=== PATIENT | female | born 1960 | race Caucasian/White ===

== ENCOUNTER 2017-02-11 21:23 | Emergency (ER) | payer BC ==
[2017-02-11] MEDS ORDERED: Albuterol/Ipratropium NEB.SOL* Albuterol 2.5 MG/Ipratropium 0.5 MG 3 ML INH ONE (21:55)
[2017-02-11] MEDS ORDERED: DOXYcycline CAP(*) 100 MG PO ONE (21:56)
--- NOTE | 2017-02-11 22:05 | UC ---
Respiratory Complaint HPI - HPI Summary HPI Summary: Pt with hx COPD states she has increased SOB and feels her chest is tight. Cough. States she can't take prednisone "because it made her sugar go up to 800 ". Has cirrhosis of the liver and varices. Has a home nebulizer but doesn't use it "because it is antiquated". - History of Current Complaint Chief Complaint: UCRespiratory Stated Complaint: UPPER RESPIRATORY Hx Obtained From: Patient Hx Last Menstrual Period: No menses since Radiation s/p uterine CA Onset/Duration: Gradual Onset, Lasting Days, Still Present Timing: Constant Severity Initially: Moderate Severity Currently: Moderate Pain Intensity: 7 Pain Scale Used: 0-10 Numeric Character: Cough: Nonproductive Aggravating Factors: Nothing Alleviating Factors: Nothing Associated Signs And Symptoms: Positive: Wheezing, URI, Nasal Congestion. Negative: Fever, Calf Pain, Calf Swelling - Risk Factors Pulmonary Embolism Risk Factors: Smoking Cardiac Risk Factors: Smoking Pseudomonas Risk Factors: Chronic Lung Disease Tuberculosis Risk Factors: Smoking - Allergies/Home Medications Allergies/Adverse Reactions: Allergies Allergy/AdvReac Type Severity Reaction Status Date / Time Azithromycin [From Zithromax] Allergy Severe THROAT Verified 02/11/17 21:28 SWELLS Clarithromycin [From Biaxin] Allergy Severe THROAT Verified 02/11/17 21:28 SWELLS Clavulanic Acid AdvReac Diarrhea Verified 02/11/17 21:28 [From Augmentin] ? amoxicillin as part of Allergy Diarrhea Uncoded 02/11/17 21:28 Augmentin Home Medications: Home Medications Propranolol TAB* [Inderal TAB*] 20 mg PO TID 02/11/17 [History Confirmed ] Spironolactone 50 mg PO DAILY 02/11/17 [History Confirmed 02/11/17] PMH/Surg Hx/FS Hx/Imm Hx Previously Healthy: No - cirrhosis of the liver , uterine CA Endocrine History Of: Reports: Diabetes - type II, Hypothyroidism Cardiovascular History Of: Reports: Hypertension Denies: Cardiac Disorders Respiratory History Of: Reports: COPD Denies: Asthma GI/ History Of: Denies: Ulcer - Surgical History Surgical History: Yes Surgery Procedure, Year, and Place: TUBAL LIGATION--1979. ??ESOPHEGIEAL VARICES - Family History Known Family History: Positive: Hypertension, Diabetes, Other - COPD daughter of cirrhosis and renal failure. - Social History Occupation: Employed Full-time Alcohol Use: None Substance Use Type: None Smoking Status (MU): Heavy Every Day Tobacco Smoker Type: Cigarettes Amount Used/How Often: 1/2 PPD Length of Time of Smoking/Using Tobacco: 20 YRS Have You Smoked in the Last Year: Yes Household Exposure Type: Cigarettes - Immunization History Most Recent Influenza Vaccination: Not the Season Review of Systems Constitutional: Fatigue Skin: Negative Eyes: Negative ENT: Nasal Discharge Respiratory: Shortness Of Breath, Cough Cardiovascular: Other - chest tightness Gastrointestinal: Negative Genitourinary: Negative Motor: Negative Neurovascular: Negative Musculoskeletal: Negative Neurological: Negative Psychological: Negative All Other Systems Reviewed And Are Negative: Yes Physical Exam Triage Information Reviewed: Yes Appearance: No Pain Distress, Ill-Appearing, Thin Vital Signs: Initial Vital Signs Temp 97.5 F 02/11/17 21:36 Pulse 74 02/11/17 21:36 Resp 24 02/11/17 21:36 BP 129/65 02/11/17 21:36 Pulse Ox 96 02/11/17 21:36 Vital Signs Reviewed: Yes Eyes: Positive: Conjunctiva Clear ENT: Positive: Pharynx normal, TMs normal Neck: Positive: Supple, Nontender, No Lymphadenopathy Respiratory: Positive: No respiratory distress, Decreased breath sounds, Wheezing Cardiovascular: Positive: RRR, No Murmur, Pulses Normal, Brisk Capillary Refill Musculoskeletal: Positive: Strength Intact, ROM Intact Neurological: Positive: Alert, Muscle Tone Normal Psychological Exam: Normal Skin Exam: Normal UC Diagnostic Evaluation - Laboratory O2 Sat by Pulse Oximetry: 96 Re-Evaluation - Re-Evaluation First Eval Re-Evaluation Time: 23:00 Change: Improved - after neb Respiratory Course/Dx - Differential Dx/Diagnosis Differential Diagnosis/HQI/PQRI: Bronchitis, Exacerbation Of COPD, Influenza, Lower Resp Infection Provider Diagnoses: exacerbation of COPD. acute bronchitis Discharge - Discharge Plan Condition: Stable Disposition: HOME Prescriptions: DOXYcycline CAP(*) [DOXYcycline 100MG CAP(*)] 100 mg PO BID #20 cap Patient Education Materials: COPD (Chronic Obstructive Pulmonary Disease) (ED) , Acute Bronchitis (ED) Forms: *Work Release Referrals: Davida Billy MD [Primary Care Provider] - 2 Days Additional Instructions: If you have new or worsening symptoms you need to go directly to the emergency department.
--- NOTE | 2017-02-11 22:26 | RAD ---
Indication: Shortness of breath and wheezing. 2 views of the chest including dual energy PA views demonstrate no mediastinal shift. Heart is of normal size and configuration. Lung greenwood are clear. When compared to previous exam of March 01, 2010 no significant change is noted. IMPRESSION: No active cardiopulmonary disease is noted.
[2017-02-11 22:55] VITALS: BP 102/68
== END 2017-02-11 23:11 | disposition home or self-care (01) ==
LOC: UCCORT 21:23
DX: J44.1 Chronic obstructive pulmonary disease with (acute) exacerbation (principal); J20.9 Acute bronchitis, unspecified; K74.60 Unspecified cirrhosis of liver; Z85.42 Personal history of malignant neoplasm of other parts of uterus; Z88.1 Allergy status to other antibiotic agents; F17.210 Nicotine dependence, cigarettes, uncomplicated
CPT/HCPCS: 71020; 99213; A9270-GY; G0463

== ENCOUNTER 2017-04-13 15:18 | Emergency (ER) | payer OTHER ==
[2017-04-13 15:33] VITALS: BP 110/64
--- NOTE | 2017-04-13 16:09 | UC ---
Respiratory Complaint HPI - HPI Summary HPI Summary: 2 days of increasing dypsnea, with use of albuterol every 3 to 4 hours, with a background of COPD. No clear symptoms of new infection: has not had a fever, sore throat, chills or coryza, but exacerbations of her COPD typically respond to doxycycline and increased albuterol. She responds well to steroids, but her diabetes control deteriorates badly with use (blood sugars to ? 800). Takes advair and spiriva regularly. Was at her gi doctor's office today; he advised her that she sounded like a harmonica. - History of Current Complaint Chief Complaint: UCGeneralIllness Stated Complaint: WHEEZING,SOB TWO DAYS Time Seen by Provider: 04/13/17 15:58 Hx Obtained From: Patient Hx Last Menstrual Period: No menses since Radiation s/p uterine CA Onset/Duration: Gradual Onset, Lasting Days - 2 Severity Currently: Moderate Character: Sputum Description: - white Aggravating Factors: Exertion Alleviating Factors: Bronchodilator Associated Signs And Symptoms: Positive: Dyspnea, Wheezing - Risk Factors Pulmonary Embolism Risk Factors: Smoking - smokes a little bit still Pseudomonas Risk Factors: Chronic Lung Disease Tuberculosis Risk Factors: Corticosteriod Use - Allergies/Home Medications Allergies/Adverse Reactions: Allergies Allergy/AdvReac Type Severity Reaction Status Date / Time Azithromycin [From Zithromax] Allergy Severe THROAT Verified 04/13/17 15:33 SWELLS Clarithromycin [From Biaxin] Allergy Severe THROAT Verified 04/13/17 15:33 SWELLS Clavulanic Acid AdvReac Diarrhea Verified 04/13/17 15:33 [From Augmentin] ? amoxicillin as part of Allergy Diarrhea Uncoded 04/13/17 15:33 Augmentin PMH/Surg Hx/FS Hx/Imm Hx Endocrine History Of: Reports: Diabetes - type II, Thyroid Disease, Hypothyroidism Cardiovascular History Of: Reports: Hypertension Denies: Cardiac Disorders Respiratory History Of: Reports: COPD, Bronchitis Denies: Asthma GI/ History Of: Denies: Ulcer - Surgical History Surgical History: Yes Surgery Procedure, Year, and Place: TUBAL LIGATION--1979. ??ESOPHEGIEAL VARICES /banding - Family History Known Family History: Positive: Hypertension, Diabetes, Other - COPD daughter of cirrhosis and renal failure. - Social History Occupation: Disabled Lives: With Family - 2 granddaughters Alcohol Use: None Substance Use Type: None Smoking Status (MU): Heavy Every Day Tobacco Smoker Type: Cigarettes Amount Used/How Often: 1/2 PPD Length of Time of Smoking/Using Tobacco: 20 YRS Have You Smoked in the Last Year: Yes Household Exposure Type: Cigarettes - Immunization History Most Recent Influenza Vaccination: none Review of Systems Constitutional: Fatigue Skin: Negative Eyes: Negative ENT: Negative Respiratory: Shortness Of Breath, Cough Cardiovascular: Negative Gastrointestinal: Other - pending further treatment of esophageal varices. Genitourinary: Negative Motor: Negative Neurovascular: Negative Musculoskeletal: Negative Neurological: Negative Psychological: Negative All Other Systems Reviewed And Are Negative: Yes Physical Exam Triage Information Reviewed: Yes Appearance: Ill-Appearing - looks chronically unwell Vital Signs: Initial Vital Signs Temp 98.9 F 04/13/17 15:26 Pulse 72 04/13/17 15:26 Resp 17 04/13/17 15:26 BP 110/64 04/13/17 15:26 Pulse Ox 96 04/13/17 15:26 Eyes: Positive: Conjunctiva Clear ENT: Positive: Pharynx normal Neck: Positive: Supple, Nontender Respiratory: Positive: No accessory muscle use, Decreased breath sounds - to both bases, with prolonged expiration and wheeze., Wheezing Cardiovascular: Positive: RRR, No Murmur Musculoskeletal Exam: Normal Neurological: Positive: Alert, Muscle Tone Normal Psychological Exam: Normal UC Diagnostic Evaluation - Laboratory O2 Sat by Pulse Oximetry: 96 Respiratory Course/Dx - Course Course Of Treatment: doxycycline and albuterol nebs - Differential Dx/Diagnosis Differential Diagnosis/HQI/PQRI: Asthma, Bronchitis, Exacerbation Of COPD Provider Diagnoses: COPD exacerbation Discharge - Discharge Plan Condition: Stable Disposition: HOME Prescriptions: Albuterol 2.5MG/3ML (0.083%)* [Ventolin 2.5 MG/3 ML NEB.BLANCA*] 2.5 mg INH Q4H # 120 [email or web address] DOXYcycline CAP(*) [DOXYcycline 100MG CAP(*)] 100 mg PO BID #20 cap Patient Education Materials: COPD (Chronic Obstructive Pulmonary Disease) (ED) Additional Instructions: begin doxycycline and use albuterol nebules every 4 hours as needed. If you are not seeing improvement in 2 to 3 days, ensure that you follow up with Dr. Menard. If you worsen, please go to the emergency room, as you might need a longer course of treatment than can be administered here.
== END 2017-04-13 16:26 | disposition home or self-care (01) ==
LOC: UCCORT 15:18
DX: J44.1 Chronic obstructive pulmonary disease with (acute) exacerbation (principal); E11.9 Type 2 diabetes mellitus without complications; E03.9 Hypothyroidism, unspecified; I10 Essential (primary) hypertension; Z88.1 Allergy status to other antibiotic agents; F17.210 Nicotine dependence, cigarettes, uncomplicated
CPT/HCPCS: 99212; G0463

== ENCOUNTER 2017-09-05 21:27 | Emergency (ER) | payer MEDICAID ==
[2017-09-05 21:53] VITALS: BP 113/66
[2017-09-05] MEDS ORDERED: DOXYcycline CAP(*) 100 MG PO ONE (22:58)
--- NOTE | 2017-09-05 23:07 | UC ---
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 pt also smokes tobacco. Pt she has had progressive swelling of b/l leg. Pt states with walking she gets severe pain in both legs - both anterior and posterior LE. Pt states subsides when she rests, but take a "long time" Pt states she has areas of reddness on her ankles that have been present >1 month. Pt states site in right ankle has slightly increased last few days. Pt states saw her pcp last week for leg edema and pain and had and US of LLE - reports neg for DVT. Pt states her pcp recommend she come for eval of ? cellulitis. pt denies feves, chills, rash. Pt does report paresthesia b/l feet. Pt does not have direct support specialist and not dx with peripheral neuropathy. Pt does not take insulin - oral meds including metformin pt's medications reviewed - History of Current Complaint Chief Complaint: UCLowerExtremity Stated Complaint: BILATERAL LEG SWELLING Time Seen by Provider: 09/05/17 22:46 Hx Obtained From: Patient Hx Last Menstrual Period: n/a ?: No Onset/Duration: Gradual Onset, Lasting Weeks Severity Initially: Mild Severity Currently: Mild Pain Intensity: 2 Pain Scale Used: 0-10 Numeric Aggravating Factor(s): Standing, Ambulation Alleviating Factor(s): Rest - Allergies/Home Medications Allergies/Adverse Reactions: Allergies Allergy/AdvReac Type Severity Reaction Status Date / Time Azithromycin [From Zithromax] Allergy Severe THROAT Verified 09/05/17 21:54 SWELLS Clarithromycin [From Biaxin] Allergy Severe THROAT Verified 09/05/17 21:54 SWELLS Clavulanic Acid AdvReac Diarrhea Verified 09/05/17 21:54 [From Augmentin] ? amoxicillin as part of Allergy Diarrhea Uncoded 09/05/17 21:54 Augmentin PMH/Surg Hx/FS Hx/Imm Hx Previously Healthy: No Endocrine History: Diabetes, Dyslipidemia Cardiovascular History: Hypertension Respiratory History: COPD GI/ History: Other Other GI/ History: primary biliary sclerosis - Surgical History Surgical History: Yes Surgery Procedure, Year, and Place: TUBAL LIGATION--1979. ??ESOPHEGIEAL VARICES /banding - Family History Known Family History: Positive: Hypertension, Diabetes, Other - COPD daughter of cirrhosis and renal failure. - Social History Occupation: Unemployed Lives: With Family Alcohol Use: None Substance Use Type: None Smoking Status (MU): Heavy Every Day Tobacco Smoker Type: Cigarettes Amount Used/How Often: 1/2 PPD Length of Time of Smoking/Using Tobacco: 20 YRS Have You Smoked in the Last Year: Yes Household Exposure Type: Cigarettes - Immunization History Most Recent Influenza Vaccination: none Review of Systems Constitutional: Fatigue Respiratory: Negative Cardiovascular: Other - leg edema Musculoskeletal: Other: - leg pain with walking Neurological: Weakness All Other Systems Reviewed And Are Negative: Yes Physical Exam Triage Information Reviewed: Yes Appearance: Well-Appearing, No Pain Distress, Well-Nourished Vital Signs: Initial Vital Signs Temp 97.8 F 09/05/17 21:44 Pulse 83 09/05/17 21:44 Resp 16 09/05/17 21:44 BP 113/66 09/05/17 21:44 Pulse Ox 96 09/05/17 21:44 Vital Signs Reviewed: Yes Eye Exam: Normal Eyes: Positive: Conjunctiva Clear ENT Exam: Normal ENT: Positive: Pharynx normal, Pharyngeal erythema, Nasal congestion Dental Exam: Normal Neck exam: Normal Neck: Positive: Supple, Nontender, No Lymphadenopathy Respiratory Exam: Normal Respiratory: Positive: Chest non-tender, Lungs clear, Normal breath sounds, No respiratory distress, No accessory muscle use Cardiovascular Exam: Normal Cardiovascular: Positive: RRR, No Murmur, Other: - 1+ dp b/l Abdominal Exam: Normal Abdomen Description: Positive: Nontender, No Organomegaly, Soft Musculoskeletal Exam: Normal Musculoskeletal: Positive: Strength Intact, ROM Intact Neurological: Positive: Alert, Other: Psychological Exam: Normal Skin: Positive: Other - Pt with dry, scaly feet bilat; pt with dime size erythema right malleolus. tarsha size errythema left lateral malleolus mild warmth, not raised Lower Extremity Course/Dx - Course Course Of Treatment: I had a long conversation regarding her LE - im concerned pt is having claudication, PVD given her medical hx and sx. ?early cellulitis vs peripheral vas changes. will start course of doxy. pt referred to Dr. Luong for further eval PVD. Pt comfortable and in agreement with plan - Differential Dx/Diagnosis Provider Diagnoses: pvd. early cellulitis Discharge - Discharge Plan Condition: Stable Disposition: HOME Prescriptions: DOXYcycline CAP(*) [DOXYcycline 100MG CAP(*)] 100 mg PO BID #20 cap Patient Education Materials: Peripheral Vascular Disease (ED), Cellulitis (ED) Referrals: Sandra Birch MD [Primary Care Provider] - Rogelio Antony MD [Medical Doctor] - Additional Instructions: - Take antibiotics as prescribed until gone - you have been given a referral to Dr. Antony - a provider who can do additional testing for blood flow to your leg - call to schedule an appointment. He is expecting you - stay well hydrated - drink plenty of non-alcoholic, non-caffinated beverages -work to decrease cigarette smoke - Contact your doctor or return for fevers, chills, uncontrolled pain
== END 2017-09-05 23:15 | disposition home or self-care (01) ==
LOC: UCCORT 21:27
DX: I73.9 Peripheral vascular disease, unspecified (principal); L03.116 Cellulitis of left lower limb; L03.115 Cellulitis of right lower limb; R53.83 Other fatigue; E11.9 Type 2 diabetes mellitus without complications; E78.5 Hyperlipidemia, unspecified; I10 Essential (primary) hypertension; J44.9 Chronic obstructive pulmonary disease, unspecified; K74.3 Primary biliary cirrhosis; Z88.1 Allergy status to other antibiotic agents; F17.210 Nicotine dependence, cigarettes, uncomplicated
CPT/HCPCS: 99212; A9270-GY; G0463

== ENCOUNTER 2018-01-24 08:23 | Emergency (ER) | payer OTHER ==
--- OUTSIDE RECORDS SUMMARY | 2018-01-24 08:33 | XMS REPORT ---
:1960 External Reference #:[id number] Author Organization [facility] Address [address], [address] [place] [address] Phone [phone] Care Team Providers Name Role Phone Sandra Birch MD Care Team Information Supervisor Securities Vault Unavailable Sandra Birch MD Primary Care Physician Unavailable Payers Type Date Identification Numbers Payment Provider Subscriber Commercial Policy Number: [id number] [facility] Alyse Zhang PayID: [id number] [address] [place] [address] Medicaid Effective: 2017 Policy Number: [id number] Medicaid Alyse Zhang PayID: [id number] [address] [place] [address] Problems Date Description Provider Status Onset: 10/08/2015 Gastroesophageal reflux disease Jose Guadalupe Kelley M.D. Active Onset: 10/08/2015 Degenerative joint disease involving Jose Guadalupe Kelley M.D. Active multiple joints Onset: 10/08/2015 Benign essential hypertension Jose Guadalupe Kelley M.D. Active Onset: 10/08/2015 Depressive disorder Jose Guadalupe Kelley M.D. Active Onset: 10/08/2015 Chronic obstructive lung disease Jose Guadalupe Kelley M.D. Active Onset: 10/08/2015 Allergic rhinitis due to animals Jose Guadalupe Kelley M.D. Active Onset: 10/08/2015 Hypothyroidism Jose Guadalupe Kelley M.D. Active Onset: 10/08/2015 Type 2 diabetes mellitus Jose Guadalupe Kelley M.D. Active Note: Aug 2015 A1c 6 LDL 190 HDL 44 TG 244 chol 283 Onset: 10/08/2015 Vitiligo Jose Guadalupe Kelley M.D. Active Onset: 10/08/2015 Primary biliary cirrhosis Jose Guadalupe Kelley M.D. Active Note: already decompensated on the vascular mode: minimal ascites Nov 2015; F2 upper endoscopy to D2 Bx Apr 2016, D 2014. Onset: 10/08/2015 Squamous cell carcinoma of anal margin Jose Guadalupe Kelley M.D. Active Note: chemotherapy/radiation therapy 1998 Onset: 10/08/2015 Irritable bowel syndrome Jose Guadalupe Kelley M.D. Active Note: -D; colonoscopy to cecum Bx 2014 Onset: 10/08/2015 Psoriasis Jose Guadalupe Kelley M.D. 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 Active Note: erosive duodenitis, healed Onset: 08/18/2016 Pure hypercholesterolemia Jesus Sutherland MD Active Social History Type Date Description Comments Marital Status Single Lives With Grandchildren Occupation Unemployed Work Status Unemployed Hand Dominance Right-handed Cigarette Use Currently smokes 1-5 Cigarettes Daily Cigars Never Smoked Cigars Pipe Never Smoked A Pipe Smokeless Tobacco Never Used Smokeless Tobacco ETOH Use Denies alcohol use Recreational Drug Use Denies Drug Use Smoking Patient is a current smoker, 1/2 ppd, since she was smokes every day 14yrs old. Daily Caffeine Current Caffeine User Daily Allergies, Adverse Reactions, Alerts Date Description Reaction Status Severity Comments 10/08/2015 Clarithromycin Anaphylaxis active 10/08/2015 Azithromycin Anaphylaxis active 10/08/2015 Amoxicillin diarrhea active 10/08/2015 Rosuvastatin active 10/08/2015 Atorvastatin active Medications Medication Date Status Form Strength Qnty SIG Indications Ordering Provider Viberedith 12/26/ Active Tablets 75mg 60tab take one R19.7 Jesus 2017 s tablet by Koko pierre MD twice daily max/daily dose 2 Bentyl 10/24/ Active Capsules 10mg 30cap 1 cap by K58.0 Jesus 2016 s mouth Koko lanier MD times a day s needed Propranolol HCL 06/30/ Active Tablets 20mg 270ta 1 tab by K74.3 Jesus 2015 bs mouth Koko lanier MD times a day Metformin HCL 01/08/ Active Tablets 850mg 180ta 1 tab K58.0 Jesus Mejia bs twice a Koko day with , meals Ursodiol 12/11/ Active Capsules 300mg 270ca 1 by mouth Jesus Mejia ps three Koko dunbar a MD day Lisinopril / Active Tablets 10mg 1 by mouth Olarewaju 0000 every day , Edna Higuera Spiriva / Active Capsules 18mcg 1 every Sharyn, Handihaler 0000 day Soila N.P. Spironolactone / Active Tablets 50mg 1 by mouth Unknown 0000 every day Ibuprofen 200 / Active Tablets 200mg 1-2 tabs Unknown 0000 by mouth three times a day as needed Incruse Ellipta / Active Aerosol 62.5mcg/In A/D Villapian 0000 h o, Sandra Lyles MD Furosemide / Active Tablets 20mg 1 po q Am Villapian 0000 o, Sandra Lyles MD Levothyroxine / Active Tablets 175mcg 1 po daily Villapian Sodium 0000 o, Sandra Lyles MD Cholestyramine 10/24/ Hx Powder 4GM/Dose 630gm unit by K58.0 Jesus Light 2016 - mouth Koko 11/29/ twice a MD 2017 Viberzi 12/20/ Hx Tablets 75mg 60tab Take One K58.0 Jesus 2016 s Tablet By Koko Pierre MD Twice Daily Max/Daily Dose 2 Modafinil 06/30/ Hx Tablets 200mg 30tab 1 tab by K74.3 Jose Guadalupe 2015 s mouth Allie, every day M.D. in the morning [facility] Dry Mouth 06/30/ Hx Solution 135ml A/D K74.3 Jose Guadalupe 2015 Edna Kelley Pantoprazole 04/07/ Hx Tablets DR 20mg 90tab Take One Jesus Sodium 2015 - s Tablet By Koko 11/29/ Mouth Once MD 2018 Daily Pantoprazole 03/02/ Hx Tablets DR 40mg 90tab 1 by mouth Jose Guadalupe Sodium 2015 - s every day Allie 04/07/ M.Klaus 2016 Propranolol HCL 02/08/ Hx Tablets 20mg 270ta 1 tab by K74.3 Jose Guadalupe 2016 - bs mouth Vatra, 04/07/ three M.D. 2016 times a day Viberzi 02/08/ Hx Tablets 75mg 60tab 1 tab by K58.9 Jesus 2015 s mouth Koko twice a , day Propranolol HCL 01/08/ Hx Tablets 20mg 60tab 1 tab by K74.3 Jose Guadalupe 2015 - s mouth Vatra, 02/08/ twice a M.D. 2016 day Pantoprazole 01/08/ Hx Tablets DR 20mg 90tab 1 by mouth Jose Guadalupe Sodium 2016 - s every day Vatra, 03/02/ M.D. 2015 Metformin HCL 01/08/ Hx Tablets 850mg 1 by mouth Jose Guadalupe 2015 - three Vatra, 01/08/ times a M.D. 2016 day Loperamide HCL 11/25/ Hx Tablets 2mg 180ta 1 by mouth K58.0 Jose Guadalupe 2014 - bs after each Vatra, 06/30/ unformed M.D. 2015 bm (max 8 times daily) Ursodiol 10/08/ Hx Capsules 300mg 90cap 1 tab by Stephie 2015 - s mouth MD Max 10/08/ daily 2014 Tums 10/08/ Hx Chewtabs 500mg 360un by mouth K21.9 Jose Guadalupe 2014 its every 2 h Vatra, as needed M.D. heartburn Golytely 10/08/ Hx Solution 227.1gm 1bott drink 1 K58.0 Jose Guadalupe 2014 - Rec le cup every Vatra, '; drink M.D. 2014 half of jug the evening before the procedure, the other half the morning of the procedure Levothyroxine / Hx Tablets 150mcg 1 by mouth Sharyn, Sodium 0000 every day Soila, N.P. Metformin HCL / Hx Tablets 1000mg 1 by mouth Sharyn, 0000 - twice a Soila, 10/08/ day N.P. 2014 Ursodiol / Hx Capsules 300mg Sharyn, 0000 - Soila, 10/08/ N.P. 2014 Tradjenta / Hx Tablets 5mg 1 by mouth Sharyn, 0000 - every day Soila, 02/07/ N.P. 2016 Pantoprazole / Hx Tablets DR 40mg 1 by mouth Sharyn, Sodium 0000 - every day Soila, 01/08/ N.P. 2016 Pravastatin 00/ Hx Tablets 20mg 1 by mouth Sharyn, Sodium 0000 - every Soila, night N.P. 2016 Diclofenac / Hx Tablets DR 25mg 1 po qd Sharyn, Sodium 0000 - prn Soila, 02/07/ N.P. 2015 Vitamin D / Hx Capsules [id number] 1 po qd Sharyn, (Ergocalciferol) 0000 Soila, N.P. Magnesium-Oxide / Hx Tablets 400(241.3m take one Unknown 0000 - g) mg tablet by 10/08/ mouth 2014 twice a day Metformin HCL / Hx Tablets 1000mg 1 by mouth Unknown 0000 - twice a day 2015 Pravastatin / Hx Tablets 20mg 1 po qday Rosaju Sodium 0000 - , [facility], 2015 MOlivia Cevimeline HCL / Hx Capsules 30mg 1 po bid Unknown 0000 Immunizations CPT Code Status Date Vaccine Lot # [id number] Given 12/25/2006 flu vaccination Vital Signs Date Vital Result Comment 12/26/2017 BP Systolic Sitting Left Arm 120 mmHg BP Diastolic Sitting Left Arm 90 mmHg Heart Rate 70 /min Respiratory Rate 16 /min Height 63.5 inches 5'3.50" Weight 156.00 lb BMI (Body Mass Index) 27.2 kg/m2 BSA (Body Surface Area) 1.75 m2 [place] body weight in kilograms 53 12/22/2017 BP Systolic Sitting Right Arm 114 mmHg BP Diastolic Sitting Right Arm 71 mmHg Heart Rate 82 /min Height 63.5 inches 5'3.50" Weight 165.00 lb BMI (Body Mass Index) 28.8 kg/m2 BSA (Body Surface Area) 1.79 m2 [place] body weight in kilograms 53 12/12/2017 BP Systolic Sitting Left Arm 110 mmHg BP Diastolic Sitting Left Arm 76 mmHg Heart Rate 70 /min Respiratory Rate 16 /min Height 63.5 inches 5'3.50" Weight 164.00 lb BMI (Body Mass Index) 28.6 kg/m2 BSA (Body Surface Area) 1.79 m2 [place] body weight in kilograms 53 11/29/2017 BP Systolic Sitting Right Arm 81 mmHg BP Diastolic Sitting Right Arm 51 mmHg Body Temperature 98.1 F Heart Rate 71 /min Respiratory Rate 20 /min Height 63.5 inches 5'3.50" Weight 157.00 lb BMI (Body Mass Index) 27.4 kg/m2 BSA (Body Surface Area) 1.75 m2 [place] body weight in kilograms 53 11/23/2017 BP Systolic Sitting Left Arm 126 mmHg BP Diastolic Sitting Left Arm 82 mmHg Heart Rate 80 /min Respiratory Rate 16 /min Height 63.5 inches 5'3.50" Weight 150.00 lb BMI (Body Mass Index) 26.2 kg/m2 BSA (Body Surface Area) 1.72 m2 [place] body weight in kilograms 53 10/24/2017 BP Systolic Sitting Left Arm 116 mmHg BP Diastolic Sitting Left Arm 72 mmHg Heart Rate 66 /min Respiratory Rate 16 /min Height 63.5 inches 5'3.50" Weight 152.00 lb BMI (Body Mass Index) 26.5 kg/m2 BSA (Body Surface Area) 1.73 m2 [place] body weight in kilograms 53 05/25/2017 BP Systolic Sitting Left Arm 114 mmHg BP Diastolic Sitting Left Arm 42 mmHg Heart Rate 86 /min Respiratory Rate 16 /min Height 63.5 inches 5'3.50" Weight 153.00 lb BMI (Body Mass Index) 26.7 kg/m2 BSA (Body Surface Area) 1.74 m2 [place] body weight in kilograms 53 04/13/2017 BP Systolic Sitting Left Arm 120 mmHg BP Diastolic Sitting Left Arm 70 mmHg Heart Rate 80 /min Respiratory Rate 20 /min Height 63.5 inches 5'3.50" Weight 150.00 lb BMI (Body Mass Index) 26.2 kg/m2 BSA (Body Surface Area) 1.72 m2 [place] body weight in kilograms 53 02/23/2017 BP Systolic Sitting Left Arm 104 mmHg BP Diastolic Sitting Left Arm 70 mmHg Heart Rate 62 /min Respiratory Rate 16 /min Height 63.5 inches 5'3.50" Weight 148.00 lb BMI (Body Mass Index) 25.8 kg/m2 BSA (Body Surface Area) 1.71 m2 01/19/2017 BP Systolic Sitting Left Arm 120 mmHg BP Diastolic Sitting Left Arm 70 mmHg Heart Rate 66 /min Respiratory Rate 16 /min Height 63.5 inches 5'3.50" Weight 150.00 lb BMI (Body Mass Index) 26.2 kg/m2 BSA (Body Surface Area) 1.72 m2 12/20/2016 BP Systolic Sitting Left Arm 122 mmHg BP Diastolic Sitting Left Arm 72 mmHg Heart Rate 73 /min Respiratory Rate 16 /min Height 63.5 inches 5'3.50" Weight 154.00 lb BMI (Body Mass Index) 26.8 kg/m2 BSA (Body Surface Area) 1.74 m2 08/18/2016 BP Systolic Sitting Left Arm 138 mmHg BP Diastolic Sitting Left Arm 82 mmHg Heart Rate 69 /min Respiratory Rate 16 /min Height 63.5 inches 5'3.50" Weight 144.00 lb BMI (Body Mass Index) 25.1 kg/m2 BSA (Body Surface Area) 1.69 m2 06/30/2016 BP Systolic 126 mmHg BP Diastolic 77 mmHg Heart Rate 98 /min Respiratory Rate 18 /min Height 63.5 inches 5'3.50" Weight 147.00 lb BMI (Body Mass Index) 25.6 kg/m2 BSA (Body Surface Area) 1.71 m2 O2 % BldC Oximetry 96 % Ra 04/07/2016 BP Systolic 128 mmHg BP Diastolic 78 mmHg Heart Rate 78 /min Respiratory Rate 18 /min Height 63.5 inches 5'3.50" Weight 144.00 lb BMI (Body Mass Index) 25.1 kg/m2 BSA (Body Surface Area) 1.69 m2 O2 % BldC Oximetry 99 % Ra 02/09/2016 BP Systolic 118 mmHg BP Diastolic 76 mmHg Heart Rate 77 /min Respiratory Rate 18 /min Height 63.5 inches 5'3.50" Weight 135.00 lb BMI (Body Mass Index) 23.5 kg/m2 BSA (Body Surface Area) 1.65 m2 O2 % BldC Oximetry 97 % ra 01/08/2016 BP Systolic 133 mmHg BP Diastolic 80 mmHg Heart Rate 81 /min Height 63.5 inches 5'3.50" Weight 140.00 lb BMI (Body Mass Index) 24.4 kg/m2 BSA (Body Surface Area) 1.67 m2 11/25/2015 BP Systolic 169 mmHg BP Diastolic 93 mmHg Heart Rate 89 /min Height 63.5 inches 5'3.50" Weight 142.00 lb BMI (Body Mass Index) 24.8 kg/m2 BSA (Body Surface Area) 1.68 m2 10/08/2015 BP Systolic 126 mmHg BP Diastolic 74 mmHg Heart Rate 96 /min Respiratory Rate 24 /min Height 63.5 inches 5'3.50" Weight 146.00 lb BMI (Body Mass Index) 25.5 kg/m2 BSA (Body Surface Area) 1.70 m2 Results Test Date Test Result H/L Range Note CBS W/Automated Diff 12/12/2017 White Blood Count 5.8 K/uL 3.1-10.7 1 Red Blood Count 3.72 M/uL Low 3.90-5.40 1 Hemoglobin 11.1 gm/dL Low 11.6-15.8 1 Hematocrit 34.8 % Low 36.0-46.1 1 Mean Cell Volume 93.5 fl 80.9-99.0 1 Mean Corpuscular HGB 29.8 pg 25.9-32.7 1 Mean Corpuscular HGB Conc 31.9 g/dL 30.8-34.3 1 Platelet Count 102 K/uL Low 155-360 1 Red Cell Distri Width SD 47.3 fl High 3-47 1 Red Cell Distri Width %CV 14.2 % 11.7-14.4 1 Mean Platelet Volume 11.3 fL 8.9-12.4 1 Neut% 61.0 % 40.4-72.8 1 Lymph % 26.9 % 20.0-42.0 1 Nolan % 9.9 % 4.3-13.2 1 Eo% 1.7 % 0.0-6.6 1 Bas% 0.5 % 0.0-1.1 1 Neut# 3.52 K/uL 1.8-7.0 1 Lymph # 1.55 K/uL 1.0-4.0 1 Nolan # 0.57 K/uL 0.3-0.9 1 Eos # 0.10 K/uL 0.0-0.5 1 Baso # 0.03 K/uL 0.0-0.1 1 Comprehensive Metabolic Panel 12/12/2017 Glucose 156 mg/dL High 74-106 1 BUN 12 mg/dL 7-18 1 Creatinine 0.7 mg/dL 0.6-1.3 1 Glom Filtration Rate, Estimate >60 mL/min >60 1 If >60 mL/min >60 1, 2 BUN/Creat 17.1 ratio 1 Sodium 140 mmol/L 136-145 1 Potassium 4.0 mmol/L 3.5-5.1 1 Chloride 107 mmol/L 98-107 1 Carbon Dioxide 24 mmol/L 21-32 1 Anion Gap 9 mEq/L 8-16 1 Calcium 9.0 mg/dL 8.5-10.1 1 Total Protein 7.1 g/dL 6.4-8.2 1 Albumin 2.9 g/dL Low 3.4-5.0 1 Globulin 4.2 g/dL 1.9-4.3 1 Alb/Glob 0.7 ratio 1 Bilirubin,Total 0.8 mg/dL 0.2-1.0 1 Sgot/Ast 58 U/L High 15-37 1 SGPT/Alt 32 U/L 12-78 1 Alkaline Phosphatase 163 U/L High 45-117 1 Laboratory test finding 12/12/2017 Cea 5.5 ng/mL 1, 3 Afp Tumor Marker,Serum 2.2 ng/mL 0.0-8.3 1, 4 Albumin <pending> 1 Cancer Antigen-GI (CA 19-9),[place] <pending> 1 Carbohydrate Antigen 19-9 36.0 U/mL High 0-35 1, 5 CBS W/Automated Diff 04/13/2017 White Blood Count 4.9 K/uL 3.1-10.7 6 Red Blood Count 3.84 M/uL Low 3.90-5.40 6 Hemoglobin 11.5 gm/dL Low 11.6-15.8 6 Hematocrit 36.2 % 36.0-46.1 6 Mean Cell Volume 94.3 fl 80.9-99.0 6 Mean Corpuscular HGB 29.9 pg 25.9-32.7 6 Mean Corpuscular HGB Conc 31.8 g/dL 30.8-34.3 6 Platelet Count 81 K/uL Low 150-400 6 Red Cell Distri Width SD 54.0 fl High 3-47 6 Red Cell Distri Width %CV 16.2 % High 11.7-14.4 6 Mean Platelet Volume 11.2 fL 8.9-12.4 6 Neut% 53.5 % 40.4-72.8 6 Lymph % 36.3 % 20.0-42.0 6 Nolan % 8.6 % 4.3-13.2 6 Eo% 1.4 % 0.0-6.6 6 Bas% 0.2 % 0.0-1.1 6 Neut# 2.63 K/uL 1.8-7.0 6 Lymph # 1.78 K/uL 1.0-4.0 6 Nolan # 0.42 K/uL 0.3-0.9 6 Eos # 0.07 K/uL 0.0-0.5 6 Baso # 0.01 K/uL 0.0-0.1 6 Anticoagulant Therapy? NO 6 Comprehensive Metabolic Panel 04/13/2017 Glucose 259 mg/dL High 74-106 6 BUN 15 mg/dL 7-18 6 Creatinine 0.8 mg/dL 0.6-1.3 6 Glom Filtration Rate, Estimate >60 mL/min >60 6 If >60 mL/min >60 6, 7 BUN/Creat 18.7 ratio 6 Sodium 142 mmol/L 136-145 6 Potassium 4.0 mmol/L 3.5-5.1 6 Chloride 106 mmol/L 98-107 6 Carbon Dioxide 28 mmol/L 21-32 6 Anion Gap 8 mEq/L 8-16 6 Calcium 8.9 mg/dL 8.5-10.1 6 Total Protein 7.3 g/dL 6.4-8.2 6 Albumin 3.1 g/dL Low 3.4-5.0 6 Globulin 4.2 g/dL 1.9-4.3 6 Alb/Glob 0.7 ratio 6 Bilirubin,Total 0.7 mg/dL 0.2-1.0 6 Sgot/Ast 41 U/L High 15-37 6 SGPT/Alt 29 U/L 12-78 6 Alkaline Phosphatase 122 U/L High 45-117 6 Protime 04/13/2017 Protime 13.8 seconds 12.0-14.4 6 Inr 1.1 0.9-1.1 6, 8 Anticoagulant Therapy? NO 6 Laboratory test 04/13/2017 Mitochondrial (M2) 93.6 units High 0.0-20.0 6 , 9 finding Antibodies Slide Review 04/13/2017 Slide Review (SEE NOTE) 6, 10 Anticoagulant Therapy? NO 6 CBS W/Automated Diff 12/20/2016 White Blood Count 4.0 K/uL 3.1-10.7 11 Red Blood Count 3.92 M/uL 3.90-5.40 11 Hemoglobin 11.0 gm/dL Low 11.6-15.8 11 Hematocrit 35.0 % Low 36.0-46.1 11 Mean Cell Volume 89.3 fl 80.9-99.0 11 Mean Corpuscular HGB 28.1 pg 25.9-32.7 11 Mean Corpuscular HGB Conc 31.4 g/dL 30.8-34.3 11 Platelet Count 83 K/uL Low 155-360 11 Red Cell Distri Width SD 51.4 fl High 3-47 11 Red Cell Distri Width %CV 16.0 % High 11.7-14.4 11 Mean Platelet Volume 10.9 fL 8.9-12.4 11 Neut% 47.8 % 40.4-72.8 11 Lymph % 38.7 % 20.0-42.0 11 Nolan % 10.5 % 4.3-13.2 11 Eo% 2.5 % 0.0-6.6 11 Bas% 0.5 % 0.0-1.1 11 Neut# 1.92 K/uL 1.8-7.0 11 Lymph # 1.55 K/uL 1.0-4.0 11 Nolan # 0.42 K/uL 0.3-0.9 11 Eos # 0.10 K/uL 0.0-0.5 11 Baso # 0.02 K/uL 0.0-0.1 11 Laboratory test finding 12/20/2016 Slide Review . 11, 12 T7/TSH 12/20/2016 T3 Uptake 30 % Low 31-39 11 Thyroxine (T4) 15.2 g/dL High 4.7-13.3 11 T7 4.56 g/dL Low 5.0-12.0 11 Thyroid Stim Hormone 11.20 uIU/mL High 0.30-4.20 11 Liver Function Tests 12/20/2016 Total Protein 7.6 g/dL 6.4-8.2 11 Albumin 3.0 g/dL Low 3.4-5.0 11 Globulin 4.6 g/dL High 1.9-4.3 11 Alb/Glob 0.7 ratio 11 Bilirubin,Total 0.8 mg/dL 0.2-1.0 11 Bilirubin,Direct 0.4 mg/dL High 0.0-0.2 11 Bilirubin,Indirect 0.4 mg/dL 0.0-0.9 11 Sgot/Ast 48 U/L High 15-37 11 SGPT/Alt 33 U/L 12-78 11 Alkaline Phosphatase 143 U/L High 45-117 11 Laboratory test 12/20/2016 Mitochondrial (M2) 112.7 units High 0.0-20.0 11, 13 finding Antibodies Comprehensive 12/20/2016 Glucose 158 mg/dL High 74-106 11 Metabolic Panel BUN 11 mg/dL 7-18 11 Creatinine 0.7 mg/dL 0.6-1.3 11 Glom Filtration Rate, Estimate >60 mL/min >60 11 If >60 mL/min >60 11, 14 BUN/Creat 15.7 ratio 11 Sodium 143 mmol/L 136-145 11 Potassium 3.8 mmol/L 3.5-5.1 11 Chloride 107 mmol/L 98-107 11 Carbon Dioxide 28 mmol/L 21-32 11 Anion Gap 8 mEq/L 8-16 11 Calcium 8.3 mg/dL Low 8.5-10.1 11 Laboratory test finding 05/23/2016 Duodenum, Biopsy See Note 15 Laboratory test finding 03/02/2016 Gastric Biopsy/Polyp See Note 16 Laboratory test finding 01/27/2016 Esophageal Biopsy See Note 17 Laboratory test finding 12/23/2015 Duodenum, Biopsy See Note 18 Laboratory test finding 11/11/2015 Duodenum, Biopsy See Note 19 1 R14.0 2 Note: Persistent reduction for 3 months or more in an eGFR <60 mL/min/1.73 m2 defines CKD. Patients with eGFR values >/=60 mL/min/1.73 m2 may also have CKD if evidence of persistent proteinuria is present. The original MDRD equation for estimated GFR is not valid for patients less than 18 years of age. Additional information may be found at www.kdoqi.org. 3 Non-smokers ..... 0.0-3.0 ng/mL Smokers ......... 0.0-5.0 ng/mL THIS ASSAY IS NOT INTENDED A CANCER SCREENING TEST The concentration of CEA in a given specimen, determined with assays from different manufacturers, can vary due to differences in assay methods and reagent specificity. Values obtained from different assay methods cannot be used interchangeably. Method: [employer] Chemiluminescent Immunoassay 4 Normal values apply only to males and to non females. These results are not interpretable for females. Tomasz ECLIA methodology. Values obtained with different assay methods or kits cannot be used interchangeably. Results cannot be interpreted as absolute evidence of the presence or absence of malignant disease. 5 Tomasz ECLIA methodology Values obtained with different assay methods or kits cannot be used interchangeably. Results cannot be interpreted as absolute evidence of the presence or absence of malignant disease. Performed at: [address] [id number] Chicken Catcher: Jodi Sanford MD, Phone: [phone] 6 K74.3 7 Note: Persistent reduction for 3 months or more in an eGFR <60 mL/min/1.73 m2 defines CKD. Patients with eGFR values >/=60 mL/min/1.73 m2 may also have CKD if evidence of persistent proteinuria is present. The original MDRD equation for estimated GFR is not valid for patients less than 18 years of age. Additional information may be found at www.kdoqi.org. 8 THERAPEUTIC INR RANGE: 2.0 - 3.0 DVT, Pulmonary embolus, prophylaxis against venous thrombosis or systemic embolization in high risk patients. 2.5 - 3.5 Mechanical heart valves 9 Negative 0.0 - 20.0 Equivocal 20.1 - 24.9 Positive >24.9 Mitochondrial (M2) Antibodies are found in 90-96% of patients with primary biliary cirrhosis. Performed at: [address] [id number] Chicken Catcher: Jodi Sanford MD, Phone: [phone] 10 Instrument flagged sample for slide review. Less than 10% Bands seen, no other immature WBC's seen. RBC morphology essentially normal. Platelet estimate=MODERATE DECREASE 11 K74.3 R68.2 12 Instrument flagged sample for slide review. Less than 10% Bands seen, no other immature WBC's seen. RBC morphology 1+ ANISOCYTOSIS. Platelet estimate=MODERATELY DECREASED 13 Negative 0.0 - 20.0 Equivocal 20.1 - 24.9 Positive >24.9 Mitochondrial (M2) Antibodies are found in 90-96% of patients with primary biliary cirrhosis. Performed at: [facility] [employer] [id number] Chicken Catcher: Jodi Sanford MD, Phone: [phone] 14 Note: Persistent reduction for 3 months or more in an eGFR <60 mL/min/1.73 m2 defines CKD. Patients with eGFR values >/=60 mL/min/1.73 m2 may also have CKD if evidence of persistent proteinuria is present. The original MDRD equation for estimated GFR is not valid for patients less than 18 years of age. Additional information may be found at www.kdoqi.org. 15 OPERATION/PROCEDURE Upper endoscopy DIAGNOSIS: "DUODENUM, RANDOM, BIOPSY": - BENIGN SMALL INTESTINAL MUCOSA WITH NO SIGNIFICANT PATHOLOGIC ABNORMALITIES. - NO EVIDENCE OF VILLOUS BLUNTING OR INCREASED INTRAEPITHELIAL LYMPHOCYTES. /[facility] 1428 GROSS Received in formalin in one appropriately labeled container with the patient' s name and accession number. The specimen is designated as "RANDOM DUODENAL BIOPSY" and consists of multiple pieces of luna soft rubbery tissue measuring 0.8 x 0.7 x 0.3 cm. in aggregate. The specimen is submitted entirely in a single cassette. /[facility] PRE OPERATIVE DIAGNOSIS Cirrhosis; GERD REVIEW CODE CODE: I Signed Electronically signed Brian VELARDE MD [id number] OPERATION/PROCEDURE Gastroscopy DIAGNOSIS: "STOMACH, ANTRUM, BIOPSY": - ANTRUM-TYPE MUCOSA WITH MILD CHRONIC GASTRITIS. /[facility] 1137 GROSS Received in formalin in a properly labeled container with the patient's name and accession number designated, "ANTRAL BIOPSIES". The specimen consists of a single piece of luna, soft rubbery tissue measuring 0.5 x 0.4 x 0.2 cm. Submitted entirely , one cassette. /[facility] PRE OPERATIVE DIAGNOSIS Primary biliary cirrhosis REVIEW CODE CODE: I Signed Electronically signed Brian VELARDE MD [id number] 17 OPERATION/PROCEDURE Gastroscopy, esophageal banding of varices DIAGNOSIS: PART 1: "SMALL BOWEL, RANDOM BIOPSIES": - SMALL BOWEL MUCOSA WITH NORMAL VILLOUS ARCHITECTURE AND NO SIGNIFICANT PATHOLOGIC ABNORMALITY. - NO INFECTIOUS AGENTS OR VIRAL PATHOLOGIC CHANGES IDENTIFIED. PART 2: "ESOPHAGUS, BIOPSY": - GASTROESOPHAGEAL TRANSITION ZONE MUCOSA WITH MILD REFLUX ESOPHAGITIS. - NO GOBLET CELL METAPLASIA OR DYSPLASIA IDENTIFIED. [facility] 1031 GROSS Received in formalin in two properly labeled container with the patient's name and accession number. Part one is designated, "RANDOM DUODENAL BIOPSIES". The specimen consists of luna, rubbery tissue with an aggregate measurement of 0.6 x 0.4 x 0.3 cm. Submitted entirely, one cassette. Part two is designated, "ESOPHAGEAL BIOPSIES". The specimen consists of a 0.3 x 0.2 x 0.1 cm. luna, soft rubbery tissue. Submitted entirely, one cassette. /[facility] PRE OPERATIVE DIAGNOSIS Cirrhosis REVIEW CODE CODE: I Signed Electronically signed MARLA PEARL MD [id number] 18 OPERATION/PROCEDURE Upper endoscopy DIAGNOSIS: "SMALL BOWEL, DUODENUM, RANDOM BIOPSIES": - SMALL BOWEL MUCOSA WITH NORMAL VILLOUS ARCHITECTURE, NO SIGNIFICANT PATHOLOGIC ABNORMALITIES. /[facility] 1025 GROSS Received in formalin in a properly labeled container with the patient's name and accession number designated, "RANDOM DUODENAL BIOPSY". The specimen consists of multiple pieces of luna, soft rubbery tissue measuring 0.6 x 0.5 x 0.2 cm. in aggregate. Submitted entirely, one cassette. /[facility] PRE OPERATIVE DIAGNOSIS Primary biliary cirrhosis REVIEW CODE CODE: I Signed Electronically signed MARLA PEARL MD 1131 19 OPERATION/PROCEDURE Colonoscopy, upper endoscopy DIAGNOSIS: PART 1: "COLON, RANDOM, BIOPSY": - BENIGN COLONIC MUCOSA WITH NO SIGNIFICANT PATHOLOGIC ABNORMALITIES. - NO EVIDENCE OF MICROSCOPIC COLITIS. PART 2: "DUODENUM, RANDOM, BIOPSY": - BENIGN SMALL INTESTINAL MUCOSA WITH NO SIGNIFICANT PATHOLOGIC ABNORMALITIES. - NO EVIDENCE OF VILLOUS BLUNTING OR INCREASED INTRAEPITHELIAL LYMPHOCYTES. /clf 1022 GROSS The specimen is received in formalin in two properly labeled containers with the patient's name and accession number. Part one is designated, "RANDOM COLON BIOPSIES". The specimen consists of multiple pieces of luna, soft rubbery tissue with an aggregate measurement of 0.6 x 0.5 x 0.2 cm. Submitted entirely, one cassette. Part two is designated, "RANDOM DUODENAL BIOPSIES". The specimen consists of multiple pieces of luna, soft rubbery tissue with an aggregate measurement of 0.6 x 0.6 x 0.3 cm. Submitted entirely, one cassette. /clf PRE OPERATIVE DIAGNOSIS Diarrhea REVIEW CODE CODE: I Signed Electronically signed Brian VELARDE MD [id number] Procedures Date CPT Code Description Status Comment 12/22/2017 51201 Radiology, Wrist Complete Completed 11/29/2017 36256 Radiology, Wrist Complete Completed 11/29/2017 69072 Fracture distal radial-closed Completed 05/10/2017 72727 EGD With Biopsy Completed 05/23/2016 03564 EGD With Band Ligation Of Completed Varic 05/23/2016 65809 EGD With Biopsy Completed 03/02/2016 15887 EGD With Biopsy Completed 01/27/2016 49696 EGD With Band Ligation Of Completed Varic 12/23/2015 46517 EGD With Band Ligation Of Completed Varic 12/23/2015 91708 EGD With Biopsy Completed 11/11/2015 41807 Colonoscopy With Biopsy Completed 11/11/2015 63642 Endoscopy Small Intestine Completed W/Biopsy 11/11/2015 Colonoscopy Completed Document: 11/11/15 - Operative Report Encounters Type Date Location Provider CPT E/M Dx Office Visit 11/23/2017 9:00[place] [address] K58.0 Office Visit 10/24/2017 10:00[place] [address] K58.0 Office Visit 05/25/2017 3:15p [place] [address] K29.70 K58.0 K74.3 Z72.0 Office Visit 04/13/2017 2:30p [place] [address] K74.3 K58.0 J45.901 Office Visit 02/23/2017 10:30[place] [address] K74.3 K58.0 M79.604 M79.605 Office Visit 01/19/2017 1:30[place] [address] K58.0 K74.3 Office Visit 12/20/2016 2:30p [place] [address] K58.0 K74.3 Office Visit 08/18/2016 11:00[place] [address] K58.0 K74.3 Office Visit 06/30/2016 3:00p YOSHI Kelley M.D. 77275 K74.3 M35.00 K21.9 K58.9 Office Visit 04/07/2016 9:45a YOSHI Kelley M.D. 03124 K74.3 K21.9 K58.9 Office Visit 02/09/2016 3:00p YOSHI Kelley M.D. 70485 K74.3 K21.9 K58.9 Office Visit 01/08/2016 10:30a YOSHI Kelley M.D. 09657 K74.3 K58.0 K21.9 Z12.11 Office Visit 11/25/2015 11:30a YOSHI Miller PA-C 38274 K21.9 K74.3 C44.520 K58.0 K55.1 Office Visit 10/08/2015 1:00p YOSHI Kelley M.D. 22972 R19.7 K74.3 K58.9 K21.9 C44.520 Office Visit 08/07/2008 11:20a YOSHI Kelley M.D. 17096 571.6 Plan of Care Future Appointment(s):01/16/2018 8:45 am - Jesus Sutherland MD at GI01/04/2018 8:45 am - GREG[facility] Par[facility]/26/2017 - Jesus Sutherland MDK74.3 Primary biliary cirrhosisComments:patient started on furosemide and spironolactoneno kfofmkuP32.5 Abnormal results of liver function studiesComments:elevated Ca 19/9poor visualization of pancreasget ct scanR19.7 Diarrhea, unspecifiedNew Medication:Viberzi 75 mgComments:diarrhea only imodium helpspatient did well on viberzi, now living on imodium and wears depends diapersnothing else helps
[2018-01-24 09:04] VITALS: BP 95/56
--- NOTE | 2018-01-24 09:24 | UC ---
Complaint Female HPI - HPI Summary HPI Summary: Skin swelling and redness and burning around the vulva. Her sugars have been high recently. No fever or chills. She has had dysuria as well. - History Of Current Complaint Chief Complaint: UCGU Stated Complaint: URINARY Time Seen by Provider: 01/24/18 08:33 Hx Obtained From: Patient Hx Last Menstrual Period: n/a Onset/Duration: Gradual Onset, Lasting Days Timing: Constant, Lasting Days Severity Initially: Moderate Severity Currently: Moderate Pain Intensity: 9 Character: Burning Aggravating Factor(s): Urination Alleviating Factor(s): Position Associated Signs And Symptoms: Positive: Genital Swelling. Negative: Fever, Back Pain, Vaginal Bleeding/Discharge, Vaginal Discharge, Nausea - Allergies/Home Medications Allergies/Adverse Reactions: Allergies Allergy/AdvReac Type Severity Reaction Status Date / Time amoxicillin Allergy Diarrhea Verified 01/24/18 08:57 azithromycin [From Zithromax] Allergy Swelling Verified 01/24/18 08:57 Of Face,Lips,& Throat clarithromycin [From Biaxin] Allergy Swelling Verified 01/24/18 08:57 Of Face,Lips,& Throat PMH/Surg Hx/FS Hx/Imm Hx Previously Healthy: No - dm. - Surgical History Surgical History: Yes Surgery Procedure, Year, and Place: TUBAL LIGATION--1979. ??ESOPHEGIEAL VARICES /banding - Family History Known Family History: Positive: Hypertension, Diabetes, Other - COPD daughter of cirrhosis and renal failure. - Social History Alcohol Use: None Substance Use Type: None Smoking Status (MU): Heavy Every Day Tobacco Smoker Type: Cigarettes Amount Used/How Often: 1/2 PPD Length of Time of Smoking/Using Tobacco: 20 YRS Have You Smoked in the Last Year: Yes Household Exposure Type: Cigarettes - Immunization History Most Recent Influenza Vaccination: none Review of Systems Skin: Rash Genitourinary: Dysuria, Frequency, Vaginal/Penile Itching, Vaginal/Penile Tenderness All Other Systems Reviewed And Are Negative: Yes Physical Exam Triage Information Reviewed: Yes Appearance: Well-Appearing, No Pain Distress - comfortable at rest but she has obvious pain with sitting down and changing positions., Well-Nourished Vital Signs: Initial Vital Signs Temp 98.6 F 01/24/18 08:59 Pulse 75 01/24/18 08:59 Resp 20 01/24/18 08:59 BP 95/56 01/24/18 08:59 Pulse Ox 99 01/24/18 08:59 Vital Signs Reviewed: Yes Eyes: Positive: Conjunctiva Clear ENT: Positive: Normal ENT inspection, Pharynx normal Neck: Negative: Nuchal Rigidity Respiratory: Positive: No accessory muscle use. Negative: Respiratory distress Cardiovascular: Positive: Brisk Capillary Refill Abdomen Description: Positive: Soft. Negative: CVA Tenderness (R), CVA Tenderness (L), Distended, Guarding Musculoskeletal: Positive: Strength Intact, ROM Intact, No Edema Neurological: Positive: Alert, Muscle Tone Normal. Negative: Fatigued Psychological: Positive: Age Appropriate Behavior Skin: Positive: Other - skin swelling and pinkness with some skin breakdown between the buttocks. Complaint Female Dx - Course Course Of Treatment: skin yeast infection without obvious signs of cellulitis. There are also signs of UTI on ua. - Differential Dx/Diagnosis Provider Diagnoses: uti. yeast infection. Discharge - Discharge Plan Condition: Good Disposition: HOME Prescriptions: DOXYcycline CAP(*) [DOXYcycline 100MG CAP(*)] 100 mg PO BID #20 cap Fluconazole 100 MG TAB* [Diflucan 100 MG TAB*] 100 mg PO DAILY #3 tab Nystatin CREAM* 1 applic TOPICAL TID #1 tube Patient Education Materials: Urinary Tract Infection in Women (DC), Yeast Infection (ED) Forms: *Work Release Referrals: Sandra Birch MD [Primary Care Provider] - Additional Instructions: Go to the ED for any worsening symptoms.
== END 2018-01-24 09:32 | disposition home or self-care (01) ==
LOC: UCCORT 08:23
DX: N39.0 Urinary tract infection, site not specified (principal); B37.9 Candidiasis, unspecified; F17.210 Nicotine dependence, cigarettes, uncomplicated
CPT/HCPCS: 81003; 87077; 87086; 99212; G0463

== ENCOUNTER 2018-07-19 14:47 | Emergency (ER) | payer OTHER ==
[2018-07-19 15:03] VITALS: BP 105/63
--- NOTE | 2018-07-19 16:03 | RAD ---
INDICATION: Rib pain. Chest congestion COMPARISON: February 11, 2017 TECHNIQUE: PA and lateral dual-energy views were obtained. FINDINGS: Bones/Soft Tissues: There are no acute bony findings. There is osteopenia with kyphosis Cardiomediastinal: The cardiomediastinal silhouette is normal. Lungs: There are no infiltrates. Pleura: There are no pleural effusions. Other: None IMPRESSION: NO ACTIVE DISEASE.
--- NOTE | 2018-07-19 16:05 | UC ---
Respiratory Complaint HPI - HPI Summary HPI Summary: Pt c/o chest congestion and tenderness right lower rib cage. Pt states she was treated for bronchitis with levaquin 500 mg PO daily X 5 days RX by PCP. Pt states the pain is worse with deep breaths. Pt denies SOB, CP, fever or chills. Pt is sitting comfortably in exam room and in NAD - History of Current Complaint Chief Complaint: UCGeneralIllness Stated Complaint: BACK AND RIB PAIN X 3 DAYS Time Seen by Provider: 07/19/18 15:19 Hx Obtained From: Patient Hx Last Menstrual Period: n/a ?: No Onset/Duration: Gradual Onset, Lasting Days, Still Present Timing: Constant Severity Initially: Mild Severity Currently: Severe Pain Intensity: 10 Aggravating Factors: Deep Breaths Alleviating Factors: Nothing Associated Signs And Symptoms: Positive: URI - Risk Factors Pulmonary Embolism Risk Factors: Smoking Cardiac Risk Factors: Smoking, Diabetes Pseudomonas Risk Factors: Chronic Lung Disease Tuberculosis Risk Factors: Smoking - Allergies/Home Medications Allergies/Adverse Reactions: Allergies Allergy/AdvReac Type Severity Reaction Status Date / Time amoxicillin Allergy Diarrhea Verified 07/19/18 14:56 azithromycin [From Zithromax] Allergy Swelling Verified 07/19/18 14:56 Of Face,Lips,& Throat clarithromycin [From Biaxin] Allergy Swelling Verified 07/19/18 14:56 Of Face,Lips,& Throat Home Medications: Home Medications Albuterol/Ipratropium RESP(NF) [Combivent Respimat (NF)] 1 puff DAILY 07/19/18 [ History Confirmed 07/19/18] Insulin Aspart [Novolog] 07/19/18 [History] Insulin Glargine,Hum.rec.anlog [Basaglar Kwikpen U-100] 14 unit DAILY 07/19/18 [ History Confirmed 07/19/18] Levothyroxine TAB* [Synthroid 150 MCG TAB*] 1 tab DAILY 07/19/18 [History Confirmed 07/19/18] Potassium Chloride [Klor-Con] 1 tab DAILY 07/19/18 [History Confirmed 07/19/18] Tiotropium CAP.INH* [Spiriva CAP.INH*] 1 inh DAILY 07/19/18 [History Confirmed 07/19/18] Torsemide TAB* [Demadex 20 MG*] 20 mg BID 08/23/18 [History Confirmed 07/19/18] PMH/Surg Hx/FS Hx/Imm Hx Previously Healthy: No Endocrine History: Diabetes, Thyroid Disease, Dyslipidemia Cardiovascular History: Cardiac Disease, Hypertension Respiratory History: COPD - Surgical History Surgical History: Yes Surgery Procedure, Year, and Place: TUBAL LIGATION--1979. ESOPHEGIEAL VARICES/ banding - Family History Known Family History: Positive: Hypertension, Diabetes, Other - COPD daughter of cirrhosis and renal failure. - Social History Alcohol Use: None Substance Use Type: None Smoking Status (MU): Heavy Every Day Tobacco Smoker Type: Cigarettes Amount Used/How Often: 1/2 PPD Length of Time of Smoking/Using Tobacco: 20 YRS Have You Smoked in the Last Year: Yes Household Exposure Type: Cigarettes - Immunization History Most Recent Influenza Vaccination: none Most Recent Tetanus Shot: UTD Review of Systems Constitutional: Negative Skin: Negative Eyes: Negative ENT: Negative Respiratory: Negative Cardiovascular: Chest Pain Gastrointestinal: Negative Genitourinary: Negative Motor: Negative Neurovascular: Negative Musculoskeletal: Myalgia Neurological: Negative Psychological: Negative Is Patient Immunocompromised?: No All Other Systems Reviewed And Are Negative: Yes Physical Exam Triage Information Reviewed: Yes Appearance: Well-Appearing Vital Signs: Initial Vital Signs Temp 99.5 F 07/19/18 14:57 Pulse 84 07/19/18 14:57 Resp 18 07/19/18 14:57 BP 105/63 07/19/18 14:57 Pulse Ox 98 07/19/18 14:57 Vital Signs Reviewed: Yes Eye Exam: Normal ENT: Positive: Normal ENT inspection Dental Exam: Normal Neck exam: Normal Respiratory Exam: Normal Respiratory: Positive: Normal breath sounds Cardiovascular Exam: Normal Musculoskeletal Exam: Normal Neurological Exam: Normal Psychological Exam: Normal Skin Exam: Normal UC Diagnostic Evaluation - Laboratory O2 Sat by Pulse Oximetry: 98 - Radiology Xray Interpretation: No Acute Changes Radiology Interpretation Completed By: Radiologist Respiratory Course/Dx - Course Course Of Treatment: chest xray: Bones/Soft Tissues: There are no acute bony findings. There is osteopenia with kyphosis. Cardiomediastinal: The cardiomediastinal silhouette is normal. Lungs: There are no infiltrates. Pleura: There are no pleural effusions. Other: None. IMPRESSION: NO ACTIVE DISEASE. - Differential Dx/Diagnosis Provider Diagnoses: URI. Chest wall pain Discharge - Sign-Out/Discharge Documenting (check all that apply): Patient Departure All imaging exams completed and their final reports reviewed: Yes - Discharge Plan Condition: Stable Disposition: HOME Prescriptions: predniSONE TAB* [Deltasone 10 MG TAB*] 10 mg PO DAILY #4 tab Patient Education Materials: Chest Wall Pain (ED) Referrals: Sandra Birch MD [Primary Care Provider] - If Needed - Billing Disposition and Condition Condition: STABLE Disposition: Home
== END 2018-07-19 16:23 | disposition home or self-care (01) ==
LOC: UCCORT 14:47
DX: J06.9 Acute upper respiratory infection, unspecified (principal); R07.89 Other chest pain; Z88.0 Allergy status to penicillin; E11.9 Type 2 diabetes mellitus without complications; F17.210 Nicotine dependence, cigarettes, uncomplicated; Z88.1 Allergy status to other antibiotic agents; Z79.4 Long term (current) use of insulin; E07.9 Disorder of thyroid, unspecified; I10 Essential (primary) hypertension; J44.9 Chronic obstructive pulmonary disease, unspecified
CPT/HCPCS: 71046; 99212; G0463

== ENCOUNTER 2019-02-23 10:55 | Emergency (ER) | payer OTHER ==
--- OUTSIDE RECORDS SUMMARY | 2019-02-23 11:03 | XMS REPORT | Continuity of Care Document ---
:1960 External Reference #:[id number] Author Name Caesar Card MD Address [address] [place] [address] Care Team Providers Name Role Phone Sandra Birch MD Care Team Information Pen Tester Unavailable Sandra Birch MD Primary Care Physician Unavailable Payers Date Identification Numbers Payment Provider Subscriber Policy Number: [id number] [place] [employer] Alyse Zhang PayID: [id number] [address] [place] [address] Effective: 2017 Policy Number: [id number] Medicaid Alyse Zhang Expires: 2017 PayID: [id number] [address] [place] [address] Advance Directives Description No Information Available Problems Date Description Provider Status Onset: 10/08/2015 Gastroesophageal reflux disease Jose Guadalupe Kelley MD Active Onset: 10/08/2015 Degenerative joint disease involving Jose Guadalupe Kelley MD Active multiple joints Onset: 10/08/2015 Benign essential hypertension Jose Guadalupe Kelley MD Active Onset: 10/08/2015 Depressive disorder Jose Guadalupe Kelley MD Active Onset: 10/08/2015 Chronic obstructive lung disease Jose Guadalupe Kelley MD Active Onset: 10/08/2015 Allergic rhinitis due to animals Jose Guadalupe Kelley MD Active Onset: 10/08/2015 Hypothyroidism Jose Guadalupe Kelley MD Active Onset: 10/08/2015 Type 2 diabetes mellitus Jose Guadalupe Kelley MD Active Note: Aug 2015 A1c 6 LDL 190 HDL 44 TG 244 chol 283 Onset: 10/08/2015 Vitiligo Jose Guadalupe Kelley MD Active Onset: 10/08/2015 Primary biliary cirrhosis Jose Guadalupe Kelley MD Active Note: already decompensated on the vascular mode: minimal ascites Nov 2015; F2 upper endoscopy to D2 Bx Apr 2016, D 2014. 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 Note: ascending cauterized 2014 Onset: 03/03/2016 H/O: peptic ulcer Jose Guadalupe Kelley MD Active Note: erosive duodenitis, healed Onset: 08/18/2016 Pure hypercholesterolemia Jesus Sutherland MD Active Onset: 07/26/2018 Gastrointestinal tract finding Jesus Sutherland MD Active Onset: 07/26/2018 Diarrhea Jesus Sutherland MD Active Onset: 12/11/2018 Tobacco user Lamar Dickey, PA Active Onset: 12/11/2018 Disturbance of salivary secretion Lamar Dickey, PA Active Onset: 12/11/2018 Edema Lamar Dickey, PA Active Onset: 12/11/2018 Substance abuse counseling Lamar Dickey, PA Active Onset: 12/11/2018 Hypoxemia Lamar Dickey, PA Active Onset: 12/11/2018 Type 2 diabetes mellitus with ulcer Lamar Dickey, PA Active Family History Date Family Member(s) Observation Comments Father Myocardial Infarction Early 60s Mother due to Lung problems () Social History Type Date Description Comments Sex Unknown Marital Status Single Lives With Grandchildren Home Environment 2 grandchildren and significan other Occupation Surgical Scrub Technician Work Status Unemployed Hand Dominance Right-handed Tobacco Use Start: Unknown Currently smokes 1-5 Cigarettes Daily Tobacco Use Start: Unknown Never Smoked Cigars Tobacco Use Start: Unknown Never Smoked A Pipe Smokeless Tobacco Never Used Smokeless Tobacco ETOH Use Denies alcohol use Recreational Drug Use Denies Drug Use Tobacco Use Start: Unknown Patient is a current smoker, 1-3 cigs/day smokes some days Smoking Status Reviewed: 02/12/19 Patient is a current smoker, 1-3 cigs/day smokes some days Allergies, Adverse Reactions, Alerts Date Description Reaction Status Severity Comments 10/08/2015 Clarithromycin Anaphylaxis Active 10/08/2015 Azithromycin Anaphylaxis Active 10/08/2015 Amoxicillin diarrhea Active 10/08/2015 Rosuvastatin Active 10/08/2015 Atorvastatin Active Medications Medication Date Status Form Strength Qnty SIG Indications Ordering Provider Oxygen 12/11/19 Active Oxygen J44.9 Kheti, 19 2L/min via MD Caesar nasal cannula at hs, and with activity to maintain o2 >88%. Oxygen 12/11/19 Active Please J44.9 Kheti, 19 test for MD Caesar portabilit y to maintain quality of life and activity level. Anoro Ellipta 10/08/20 Active Aerosol 62.5-25mc 1mont take one J44.9 Kheti, 18 g/Inh h puff once MD Caesar daily. Levalbuterol 10/08/20 Active Nebulizer 1.25mg/3M 75ml use 1 vial J44.9 Kheti, HCL 18 L every 4 MD Caesar hours as needed for shortness of breath. Acapella 10/08/20 Active Misc 1unit please J44.9 Kheti, 18 s provide 1 MD Caesar device. diagnosis: copd use three times a day as needed to clear secretions . Diagnosis: COPD Viberzi 12/26/19 Active Tablets 75mg 60tab take one R19.7 Koko 18 s tablet by Jesus mouth MD twice daily max/daily dose 2 Metformin HCL 01/08/20 Active Tablets 850mg 180ta 1 tab K58.0 Koko 16 bs daily Jesus MD Ursodiol 12/11/19 Active Capsules 300mg 270ca Take One Koko 16 ps Capsule By Jesus Mouth MD Three Times Daily Spironolactone Active Tablets 50mg 1 by mouth Unknown 00 every day Levothyroxine Active Tablets 175mcg 1 po daily Villapian Sodium 00 o, Sandra Lyles MD Basaglar Active Solution 100Unit/M 10 u @ Unknown Kwikpen 00 Pen-Inject L hs Ventolin HFA Active Aerosol 108(90Bas take 2 Unknown 00 e) puffs mcg/Act every 6 hours as needed for shortness of breath. Oxycodone HCL Active Tablets 5mg prn Unknown 00 Spiriva Active Aerosol 2.5mcg/Ac 4gm 2 puff Stephie, Respimat 00 t once daily MD Caesar Symbicort Active Aerosol 160-4.5mc 2 puffs Villapian 00 g/Act twice o, Sandra daily MD Trupti Torsemide Active Tablets 20mg 2 by mouth Unknown 00 every morning Compression 12/11/19 Hx Please R60.9 Kheti, Stockings 19 - measure MD Caesar Unknown for knee high compressio n stockings. dx: Edema. Benadryl Extra 04/26/20 Hx Cream 2-0.1% 1 unit K74.3 Koko Strength 18 - apply to Jesus, Unknown affected MD area every day Questran Light 04/03/20 Hx Powder 4GM/Dose 420gm 1 dose K74.3 Koko 18 - with 8 , Jesus, Unknown ounces of MD water with meals Furosemide 04/03/20 Hx Tablets 20mg 30tab 1 tab by K74.3 Koko 18 - s mouth , Jesus, 04/06/20 every day MD 18 every morning Cholestyramine 10/24/20 Hx Powder 4GM/Dose 630gm unit by K58.0 Koko Light 17 - mouth , Jesus, 11/29/19 twice a MD 18 day Bentyl 10/24/20 Hx Capsules 10mg 30cap 1 cap by Pieter8.0 Koko 17 - s mouth Jesus, Unknown three MD times a day s needed Viberzi 12/20/19 Hx Tablets 75mg 60tab Take One Pieter8.0 Koko 17 - s Tablet By Jesus, Unknown Mouth Twice Daily Max/Daily Dose 2 Modafinil 06/30/20 Hx Tablets 200mg 30tab 1 tab by K74.3 Allie 16 - s mouth Jose Guadalupe, Hermilo every day MD in the morning [facility] Dry Mouth 06/30/20 Hx Solution 135ml A/D K74.3 Allie 16 - Jose Guadalupe, Unknown MD Propranolol HCL 06/30/20 Hx Tablets 20mg 270ta 1 tab by Mariano74.3 Koko 16 - bs mouth , Jesus, 07/26/20 three MD 18 times a day Pantoprazole 04/07/[address] 20mg 90tab Take One Koko Sodium 16 - s Tablet By Jesus, 11/29/19 Mouth Once MD 18 Daily Pantoprazole 03/02/[address] 40mg 90tab 1 by mouth Vatra, Sodium 16 - s every day Jose Guadalupe, 04/07/20 MD 16 Propranolol HCL 02/09/20 Hx Tablets 20mg 270ta 1 tab by K74.3 Allie 16 - bs mouth Jose Guadalupe, 04/07/20 three MD 16 times a day Viberzi 02/09/20 Hx Tablets 75mg 60tab 1 tab by K58.9 Koko 16 - s mouth Jesus, Unknown twice a MD day Propranolol HCL 01/08/20 Hx Tablets 20mg 60tab 1 tab by K74.3 Allie, 16 - s mouth Jose Guadalupe, 02/09/20 twice a MD 16 day Pantoprazole 01/08/[address] 20mg 90tab 1 by mouth Allie, Sodium 16 - s every day Jose Guadalupe, 03/02/20 MD 16 Metformin HCL 01/08/20 Hx Tablets 850mg 1 by mouth Allie, 16 - three Jose Guadalupe, 01/08/20 times a MD 16 day Loperamide HCL 11/25/20 Hx Tablets 2mg 180ta 1 by mouth K58.0 Allie, 15 - bs after each Jose Guadalupe, 06/30/20 unformed 16 bm (max 8 times daily) Ursodiol 10/08/20 Hx Capsules 300mg 90cap 1 tab by Stephie 15 - s mouth MD Max 10/08/20 daily 15 Tums 10/08/20 Hx Chewtabs 500mg 360un by mouth K21.9 Allie, 15 - its every 2 h Jose Guadalupe, Unknown as needed MD makeda Bowens 10/08/20 Hx Solution 227.1gm 1bott drink 1 K58.0 Allie, 15 - Rec le cup every Jose Guadalupe, 11/25/20 10'; drink 15 half of jug the evening before the procedure, the other half the morning of the procedure Lisinopril Hx Tablets 10mg 1 by mouth Olarewaju 00 - every day , Unknown Davida, MHolaD. Levothyroxine Hx Tablets 150mcg 1 by mouth Sharyn, Sodium 00 - every day Soila, Unknown N.P. Metformin HCL Hx Tablets 1000mg 1 by mouth Sharyn, 00 - twice a Soila, 10/08/20 day N.P. 15 Ursodiol Hx Capsules 300mg Sharyn, 00 - Soila, 10/08/20 N.P. 15 Tradjenta Hx Tablets 5mg 1 by mouth Sharyn, 00 - every day Soila, 02/08/20 N.P. [address] 40mg 1 by mouth Sharyn, Sodium 00 - every day Soila, 01/08/20 N.P. 16 Pravastatin Hx Tablets 20mg 1 by mouth Sharyn, Sodium 00 - every Soila, 01/21/20 night N.P. [address] 25mg 1 po qd Sharyn, Sodium 00 - prn Soila, 02/08/20 N.P. 16 Spiriva Hx Capsules 18mcg 1 every Sharyn, Handihaler 00 - day Soila, Unknown N.P. Vitamin D Hx Capsules 78137Sqtz 1 po qd Sharyn, (Ergocalciferol - , ) Unknown N.P. Magnesium-Oxide Hx Tablets 400(241.3 take one Unknown 00 - mg) mg tablet by 10/08/20 mouth 15 twice a day Metformin HCL Hx Tablets 1000mg 1 by mouth Unknown 00 - twice a 01/08/20 day 16 Pravastatin Hx Tablets 20mg 1 po qday Olarewaju Sodium 00 - , 06/29/20 Davida, 16 M.D. Cevimeline HCL Hx Capsules 30mg 1 po bid Unknown 00 - Unknown Ibuprofen 200 Hx Tablets 200mg 1-2 tabs Unknown 00 - by mouth Unknown three times a day as needed Incruse Ellipta Hx Aerosol 62.5mcg/I A/D Villapian - nh o, Sandra Lyles MD Furosemide Hx Tablets 20mg 1 po q Am Villapian 00 - o, Sandra Lyles MD Prednisone Hx Tablets 20mg Villapian 00 - o, Sandra Lyles MD Doxycycline Hx Capsules 100mg 1 po bid Villapian Hyclate 00 - o, Sandra 07/26/20 MD Trupti 18 Ofloxacin Hx Solution 0.3% Villapian (Otic) 00 - o, Sandra Lyles MD Glipizide XL Hx Tablets ER 5mg Villapian 00 - 24HR o, Sandra Lyles MD Fluconazole Hx Tablets 150mg Villapian 00 - o, Sandra Lyles MD Torsemide Hx Tablets 40mg 1 po daily Villapian 00 - o, Sandra Lyles MD Incruse Ellipta Hx Aerosol 62.5mcg/I take 1 Unknown 00 - nh puff once 10/08/20 daily. 18 Novolog Flexpen Hx Solution 100Unit/M 5 u Q Am Unknown 00 - Pen-Inject L Unknown Spiriva Hx Aerosol 2.5mcg/Ac take 2 Unknown Respimat 00 - t puffs once 10/08/20 daily. 18 Combivent Hx Aerosol 20-100mcg Villapian Respimat 00 - /Act Sandra carter 10/08/20 MD Trupti 18 Albuterol Hx Nebulizer (2.5mg/3M Villapian Sulfate 00 - L) 0.083% Sandra carter 10/08/20 MD Trupti 18 Bumetanide Hx Tablets 1mg 1 po twice Villapian 00 - daily oSandra MD Immunizations CPT Code Status Date Vaccine Lot # [id number] Given 12/25/2006 flu vaccination Vital Signs Date Vital Result Comment 02/12/2019 10:03am BP Systolic Sitting Left Arm 104 mmHg BP Diastolic Sitting Left Arm 65 mmHg Heart Rate 16 /min Respiratory Rate 98 /min Height 63.5 inches 5'3.50" Weight 131.00 lb BMI (Body Mass Index) 22.8 kg/m2 BSA (Body Surface Area) 1.62 m2 [place] body weight in kilograms 53 kg O2 % BldC Oximetry 98 % nc/3l 12/11/2018 8:55am BP Systolic Sitting Left Arm 126 mmHg BP Diastolic Sitting Left Arm 64 mmHg Heart Rate 102 /min Respiratory Rate 20 /min Height 63.5 inches 5'3.50" Weight 137.00 lb BMI (Body Mass Index) 23.9 kg/m2 BSA (Body Surface Area) 1.66 m2 [place] body weight in kilograms 53 kg O2 % BldC Oximetry 88 % 10/08/2018 2:15pm BP Systolic Sitting Left Arm 112 mmHg BP Diastolic Sitting Left Arm 62 mmHg Heart Rate 97 /min Respiratory Rate 24 /min Height 63.5 inches 5'3.50" Weight 133.00 lb BMI (Body Mass Index) 23.2 kg/m2 BSA (Body Surface Area) 1.64 m2 [place] body weight in kilograms 53 kg O2 % BldC Oximetry 93 % ora 07/26/2018 2:22pm BP Systolic Sitting Left Arm 100 mmHg BP Diastolic Sitting Left Arm 50 mmHg Heart Rate 78 /min Respiratory Rate 16 /min Height 63.5 inches 5'3.50" Weight 141.00 lb BMI (Body Mass Index) 24.6 kg/m2 BSA (Body Surface Area) 1.68 m2 [place] body weight in kilograms 53 kg 04/26/2018 9:52am BP Systolic Sitting Left Arm 100 mmHg BP Diastolic Sitting Left Arm 68 mmHg Heart Rate 74 /min Respiratory Rate 16 /min Height 63.5 inches 5'3.50" Weight 140.00 lb BMI (Body Mass Index) 24.4 kg/m2 BSA (Body Surface Area) 1.67 m2 [place] body weight in kilograms 53 kg 04/03/2018 1:51pm BP Systolic Sitting Right Arm 118 mmHg BP Diastolic Sitting Right Arm 72 mmHg Heart Rate 65 /min Respiratory Rate 16 /min Height 63.5 inches 5'3.50" Weight 141.00 lb BMI (Body Mass Index) 24.6 kg/m2 BSA (Body Surface Area) 1.68 m2 [place] body weight in kilograms 53 kg 01/16/2018 8:50am BP Systolic Sitting Left Arm 116 mmHg BP Diastolic Sitting Left Arm 74 mmHg Heart Rate 67 /min Respiratory Rate 16 /min Height 63.5 inches 5'3.50" Weight 148.00 lb BMI (Body Mass Index) 25.8 kg/m2 BSA (Body Surface Area) 1.71 m2 [place] body weight in kilograms 53 kg 12/26/2017 9:28am BP Systolic Sitting Left Arm 120 mmHg BP Diastolic Sitting Left Arm 90 mmHg Heart Rate 70 /min Respiratory Rate 16 /min Height 63.5 inches 5'3.50" Weight 156.00 lb BMI (Body Mass Index) 27.2 kg/m2 BSA (Body Surface Area) 1.75 m2 [place] body weight in kilograms 53 kg 12/22/2017 9:50am BP Systolic Sitting Right Arm 114 mmHg BP Diastolic Sitting Right Arm 71 mmHg Heart Rate 82 /min Height 63.5 inches 5'3.50" Weight 165.00 lb BMI (Body Mass Index) 28.8 kg/m2 BSA (Body Surface Area) 1.79 m2 [place] body weight in kilograms 53 kg 12/12/2017 8:37am BP Systolic Sitting Left Arm 110 mmHg BP Diastolic Sitting Left Arm 76 mmHg Heart Rate 70 /min Respiratory Rate 16 /min Height 63.5 inches 5'3.50" Weight 164.00 lb BMI (Body Mass Index) 28.6 kg/m2 BSA (Body Surface Area) 1.79 m2 [place] body weight in kilograms 53 kg 11/29/2017 2:44pm BP Systolic Sitting Right Arm 81 mmHg BP Diastolic Sitting Right Arm 51 mmHg Body Temperature 98.1 F Heart Rate 71 /min Respiratory Rate 20 /min Height 63.5 inches 5'3.50" Weight 157.00 lb BMI (Body Mass Index) 27.4 kg/m2 BSA (Body Surface Area) 1.75 m2 [place] body weight in kilograms 53 kg 11/23/2017 9:00am BP Systolic Sitting Left Arm 126 mmHg BP Diastolic Sitting Left Arm 82 mmHg Heart Rate 80 /min Respiratory Rate 16 /min Height 63.5 inches 5'3.50" Weight 150.00 lb BMI (Body Mass Index) 26.2 kg/m2 BSA (Body Surface Area) 1.72 m2 [place] body weight in kilograms 53 kg 10/24/2017 10:03am BP Systolic Sitting Left Arm 116 mmHg BP Diastolic Sitting Left Arm 72 mmHg Heart Rate 66 /min Respiratory Rate 16 /min Height 63.5 inches 5'3.50" Weight 152.00 lb BMI (Body Mass Index) 26.5 kg/m2 BSA (Body Surface Area) 1.73 m2 [place] body weight in kilograms 53 kg 05/25/2017 3:08pm BP Systolic Sitting Left Arm 114 mmHg BP Diastolic Sitting Left Arm 42 mmHg Heart Rate 86 /min Respiratory Rate 16 /min Height 63.5 inches 5'3.50" Weight 153.00 lb BMI (Body Mass Index) 26.7 kg/m2 BSA (Body Surface Area) 1.74 m2 [place] body weight in kilograms 53 kg 04/13/2017 2:22pm BP Systolic Sitting Left Arm 120 mmHg BP Diastolic Sitting Left Arm 70 mmHg Heart Rate 80 /min Respiratory Rate 20 /min Height 63.5 inches 5'3.50" Weight 150.00 lb BMI (Body Mass Index) 26.2 kg/m2 BSA (Body Surface Area) 1.72 m2 [place] body weight in kilograms 53 kg 02/23/2017 10:30am BP Systolic Sitting Left Arm 104 mmHg BP Diastolic Sitting Left Arm 70 mmHg Heart Rate 62 /min Respiratory Rate 16 /min Height 63.5 inches 5'3.50" Weight 148.00 lb BMI (Body Mass Index) 25.8 kg/m2 BSA (Body Surface Area) 1.71 m2 01/19/2017 1:38pm BP Systolic Sitting Left Arm 120 mmHg BP Diastolic Sitting Left Arm 70 mmHg Heart Rate 66 /min Respiratory Rate 16 /min Height 63.5 inches 5'3.50" Weight 150.00 lb BMI (Body Mass Index) 26.2 kg/m2 BSA (Body Surface Area) 1.72 m2 12/20/2016 2:25pm BP Systolic Sitting Left Arm 122 mmHg BP Diastolic Sitting Left Arm 72 mmHg Heart Rate 73 /min Respiratory Rate 16 /min Height 63.5 inches 5'3.50" Weight 154.00 lb BMI (Body Mass Index) 26.8 kg/m2 BSA (Body Surface Area) 1.74 m2 08/18/2016 10:59am BP Systolic Sitting Left Arm 138 mmHg BP Diastolic Sitting Left Arm 82 mmHg Heart Rate 69 /min Respiratory Rate 16 /min Height 63.5 inches 5'3.50" Weight 144.00 lb BMI (Body Mass Index) 25.1 kg/m2 BSA (Body Surface Area) 1.69 m2 06/30/2016 3:49pm BP Systolic 126 mmHg BP Diastolic 77 mmHg Heart Rate 98 /min Respiratory Rate 18 /min Height 63.5 inches 5'3.50" Weight 147.00 lb BMI (Body Mass Index) 25.6 kg/m2 BSA (Body Surface Area) 1.71 m2 O2 % BldC Oximetry 96 % Ra 04/07/2016 10:09am BP Systolic 128 mmHg BP Diastolic 78 mmHg Heart Rate 78 /min Respiratory Rate 18 /min Height 63.5 inches 5'3.50" Weight 144.00 lb BMI (Body Mass Index) 25.1 kg/m2 BSA (Body Surface Area) 1.69 m2 O2 % BldC Oximetry 99 % Ra 02/09/2016 3:56pm BP Systolic 118 mmHg BP Diastolic 76 mmHg Heart Rate 77 /min Respiratory Rate 18 /min Height 63.5 inches 5'3.50" Weight 135.00 lb BMI (Body Mass Index) 23.5 kg/m2 BSA (Body Surface Area) 1.65 m2 O2 % BldC Oximetry 97 % ra 01/08/2016 10:22am BP Systolic 133 mmHg BP Diastolic 80 mmHg Heart Rate 81 /min Height 63.5 inches 5'3.50" Weight 140.00 lb BMI (Body Mass Index) 24.4 kg/m2 BSA (Body Surface Area) 1.67 m2 11/25/2015 11:30am BP Systolic 169 mmHg BP Diastolic 93 mmHg Heart Rate 89 /min Height 63.5 inches 5'3.50" Weight 142.00 lb BMI (Body Mass Index) 24.8 kg/m2 BSA (Body Surface Area) 1.68 m2 10/08/2015 1:00pm BP Systolic 126 mmHg BP Diastolic 74 mmHg Heart Rate 96 /min Respiratory Rate 24 /min Height 63.5 inches 5'3.50" Weight 146.00 lb BMI (Body Mass Index) 25.5 kg/m2 BSA (Body Surface Area) 1.70 m2 Results Test Date Facility Test Result H/L Range Note CBC 07/26/2018 [facility] White Blood 5.0 K/uL N 3.1-10.7 1 W/Automated [address] [place] [address] [phone] Red Blood Count 3.34 M/uL Low 3.90-5.40 Hemoglobin 10.4 gm/dL Low 11.6-15.8 Hematocrit 31.5 % Low 36.0-46.1 Mean Cell Volume 94.3 fl N 80.9-99.0 Mean Corpuscular HGB 31.1 pg N 25.9-32.7 Mean Corpuscular HGB Conc 33.0 g/dL N 30.8-34.3 Platelet Count 108 K/uL Low 155-360 Red Cell Distri Width SD 56.0 fl High 3-47 Red Cell Distri Width %CV 16.9 % High 11.7-14.4 Mean Platelet Volume 10.9 fL N 8.9-12.4 Neut% 52.1 % N 40.4-72.8 Lymph % 32.3 % N 20.0-42.0 [place] % 12.4 % N 4.3-13.2 Eo% 2.8 % N 0.0-6.6 Bas% 0.4 % N 0.0-1.1 Neut# 2.59 K/uL N 1.8-7.0 Lymph # 1.61 K/uL N 1.0-4.0 [place] # 0.62 K/uL N 0.3-0.9 Eos # 0.14 K/uL N 0.0-0.5 Baso # 0.02 K/uL N 0.0-0.1 Anticoagulant Therapy? NO Comprehensive Metabolic 07/26/2018 [facility] Glucose 182 mg/dL High 74-106 Panel [address] [place] [address] [phone] BUN 46 mg/dL High 7-18 Creatinine 1.7 mg/dL High 0.6-1.3 Glom Filtration Rate, Estimate 33 mL/min >60 If 40 mL/min >60 2 BUN/Creat 27.0 ratio Sodium 134 mmol/L Low 136-145 Potassium 4.0 mmol/L N 3.5-5.1 Chloride 96 mmol/L Low 98-107 Carbon Dioxide 30 mmol/L N 21-32 Anion Gap 8 mEq/L N 8-16 Calcium 9.3 mg/dL N 8.5-10.1 Total Protein 7.8 g/dL N 6.4-8.2 Albumin 3.0 g/dL Low 3.4-5.0 Globulin 4.8 g/dL High 1.9-4.3 Alb/Glob 0.6 ratio Bilirubin,Total 1.1 mg/dL High 0.2-1.0 Sgot/Ast 83 U/L High 15-37 SGPT/Alt 54 U/L N 12-78 Alkaline Phosphatase 124 U/L High 45-117 Protime 07/26/2018 [facility] Protime 13.3 seconds N 12.0-14.[address] [place], [place] [id number] [phone] Inr 1.0 N 0.9-1.1 3 Anticoagulant Therapy? NO T7/TSH 07/26/2018 [facility] T3 Uptake 36 % N 31-[address] [place], [place] [id number] [phone] Thyroxine (T4) 12.9 g/dL N 4.7-13.3 T7 4.64 g/dL Low 5.0-12.0 Thyroid Stim Hormone 17.20 uIU/mL High 0.30-4.20 Sedimentation Rate 07/26/2018 [facility] Sedimentation 48 mm/hr High 0-[address] Rate [place], [place] [id number] [phone] Anticoagulant Therapy? NO Laboratory test 07/26/2018 [facility] C-Reactive 5.3 mg/L High <3.[address] Protein,Quant [place], [place] [id number] [phone] Lipase 256 U/L N 56-289 Lab Report: PT/ Inr, CBC, BMP, 06/05/2018 N2N/CCD Import Albumin 3.3 g/dL 3.2-5.2 LFT, TSH, A1c... Albumin/Globulin Ratio 0.9 Low 1-3 Alkaline Phosphatase 133 U/L High 34-104 Alt 29 U/L 7-52 Ast 60 U/L High 13-39 BUN/Creatinine Ratio 23.8 High 8-20 Blood Urea Nitrogen 20 mg/dL 6-24 Calcium 8.8 mg/dL 8.6-10.3 Chloride 98 mmol/L Low 101-111 Co2 Carbon Dioxide 31 mmol/L 22-32 Creatinine 0.84 mg/dL 0.51-0.95 Direct Bilirubin 0.70 mg/dL High 0.03-0.18 Egfr 84.3 (?) >60 Egfr Non- 69.6 (?) >60 Globulin 3.8 2-4 Hematocrit 36 % 35-47 Hemoglobin 12.1 g/dL 12.0-16.0 Hemoglobin A1c/Hemoglobin.total in Blood 7.6 % High 4.0-5.6 Inr 0.99 0.77-1.02 Mean Corpuscular HGB Conc 34 g/dL 31-36 Mean Corpuscular Hemoglobin 30 pg 27-31 Mean Corpuscular Volume 89 fL 80-97 Mean Platelet Volume 9.7 Um3 7.4-10.4 Platelet Count 73 10 3/Ul Low 150-450 Potassium 3.4 mmol/L Low 3.5-5.0 Red Blood Count 4.05 10 6/Ul 4.00-5.40 Red Cell Distribution Width 16 % High 10.5-15 Sodium 138 mmol/L 135-145 TSH (Thyroid Stimulating Horm) 5.75 u[iU]/mL High 0.34-5.60 Total Bilirubin 1.40 mg/dL High 0.2-1.0 Total Protein 7.1 g/dL 6.4-8.9 White Blood Count 5.5 10 3/Ul 3.5-10.8 Lab Report: PT/ Inr, CBS 05/22/2018 N2N/CCD Import Albumin 3.5 g/dL 3.2- 5.2 W/Diff, BMP, LFT, Mg, TSH Albumin/Globulin Ratio 0.8 Low 1-3 Alkaline Phosphatase 121 U/L High 34-104 Alt 29 U/L 7-52 Ast 63 U/L High 13-39 BUN/Creatinine Ratio 25.6 High 8-20 Blood Urea Nitrogen 23 mg/dL 6-24 Calcium 9.7 mg/dL 8.6-10.3 Chloride 97 mmol/L Low 101-111 Co2 Carbon Dioxide 31 mmol/L 22-32 Creatinine 0.90 mg/dL 0.51-0.95 Direct Bilirubin 0.60 mg/dL High 0.03-0.18 Egfr 77.8 (?) >60 Egfr Non- 64.3 (?) >60 Globulin 4.3 High 2-4 Hematocrit 38 % 35-47 Hemoglobin 12.5 g/dL 12.0-16.0 Inr 0.95 0.77-1.02 Mean Corpuscular HGB Conc 33 g/dL 31-36 Mean Corpuscular Hemoglobin 29 pg 27-31 Mean Corpuscular Volume 88 fL 80-97 Mean Platelet Volume 9.9 Um3 7.4-10.4 Platelet Count 83 10 3/Ul Low 150-450 Potassium 3.7 mmol/L 3.5-5.0 Red Blood Count 4.26 10 6/Ul 4.00-5.40 Red Cell Distribution Width 16 % High 10.5-15 Sodium 137 mmol/L 135-145 TSH (Thyroid Stimulating Horm) 2.87 u[iU]/mL 0.34-5.60 Total Bilirubin 1.40 mg/dL High 0.2-1.0 Total Protein 7.8 g/dL 6.4-8.9 White Blood Count 4.8 10 3/Ul 3.5-10.8 Lab Report: CBC, PT/ Inr, BMP, 04/24/2018 N2N/CCD Import Albumin 3.2 g/dL 3.2-5.2 LFT, Vit D,25-Hyd Albumin/Globulin Ratio 0.8 Low 1-3 Alkaline Phosphatase 137 U/L High 34-104 Alt 20 U/L 7-52 Ast 48 U/L High 13-39 BUN/Creatinine Ratio 18.9 8-20 Blood Urea Nitrogen 18 mg/dL 6-24 Calcium 9.0 mg/dL 8.6-10.3 Chloride 99 mmol/L Low 101-111 Co2 Carbon Dioxide 30 mmol/L 22-32 Creatinine 0.95 mg/dL 0.51-0.95 Direct Bilirubin 0.40 mg/dL High 0.03-0.18 Egfr 77.7 (?) >60 Egfr Non- 60.4 (?) >60 Globulin 3.9 2-4 Hematocrit 34 % Low 35-47 Hemoglobin 11.2 g/dL Low 12.0-16.0 Inr 0.98 0.77-1.02 Mean Corpuscular HGB Conc 33 g/dL 31-36 Mean Corpuscular Hemoglobin 29 pg 27-31 Mean Corpuscular Volume 87 fL 80-97 Mean Platelet Volume 9.6 Um3 7.4-10.4 Platelet Count 79 10 3/Ul Low 150-450 Potassium 3.7 mmol/L 3.5-5.0 Red Blood Count 3.92 10 6/Ul Low 4.0-5.4 Red Cell Distribution Width 17 % High 10.5-15 Sodium 138 mmol/L Low 139-145 Total Bilirubin 1.20 mg/dL High 0.2-1.0 Total Protein 7.1 g/dL 6.4-8.9 White Blood Count 4.1 10 3/Ul 3.5-10.8 Lab Report: CBS W/Automated Diff 04/02/2018 N2N/CCD Import Eo% 2.6 % 0.0 -6.6 Eos # 0.13 10*3/uL 0.0-0.5 Hematocrit 35.0 % Low 36.0-46.1 Hemoglobin 11.1 g/dL Low 11.6-15.8 Lymph % 21.1 % 20.0-42.0 Mean Cell Volume 89.3 fL 80.9-99.0 Mean Corpuscular HGB 28.3 pg 25.9-32.7 Mean Corpuscular HGB Conc 31.7 g/dL 30.8-34.3 Mean Platelet Volume 12.1 fL 8.9-12.4 [place] % 7.9 % 4.3-13.2 Neut% 68.0 % 40.4-72.8 Platelet Count 84 10*3/mm3 Low 155-360 Red Blood Count 3.92 M/Ul 3.90-5.40 Red Cell Distri Width SD 51.5 fL High 3-47 White Blood Count 5.1 10*3/mm3 3.1-10.7 Lab Report: Folate,RBC 04/02/2018 N2N/CCD Import Haptoglobin 47 mg/dL 34 -200 Transferrin 293 mg/dL 200-370 Lab Report: Iron-Tibc-%Sat 04/02/2018 N2N/CCD Import Alb/Glob 0.6 ratio Albumin 3.0 g/dL Low 3.4-5.0 BUN 19 mg/dL High 7-18 BUN/Creat 21.1 ratio Bilirubin,Direct 0.6 mg/dL High 0.0-0.2 Bilirubin,Total 1.2 mg/dL High 0.2-1.0 Calcium 9.1 mg/dL 8.5-10.1 Carbon Dioxide 27 mmol/L 21-32 Chloride 105 mmol/L 98-107 Creatinine 0.9 mg/dL 0.6-1.3 Globulin 4.8 g/dL High 1.9-4.3 Glom Filtration Rate, Estimate >60 mL/min >60 If >60 >60 Potassium 4.0 mmol/L 3.5-5.1 SGPT/Alt 28 U/L 12-78 Serum Iron 63 g/dL 50-170 Sgot/Ast 61 U/L High 15-37 Sodium 137 mmol/L 136-145 Total Iron Binding Capacity 379 g/dL 250-450 Total Protein 7.8 g/dL 6.4-8.2 Transferrin %Saturation 17 % 12-57 Vitamin B12 576 pg/mL 193-986 Lab Report: BMP, LFT, CBS 03/27/2018 N2N/CCD Import Albumin 3.0 g/dL Low 3.2-5.2 W/Diff, Biopsy, Skin Albumin/Globulin Ratio 0.7 Low 1-3 Alkaline Phosphatase 171 U/L High 34-104 Alt 21 U/L 7-52 Ast 43 U/L High 13-39 BUN/Creatinine Ratio 16.3 8-20 Blood Urea Nitrogen 16 mg/dL 6-24 Calcium 8.9 mg/dL 8.6-10.3 Chloride 102 mmol/L 101-111 Co2 Carbon Dioxide 20 mmol/L Low 22-32 Creatinine 0.98 mg/dL High 0.51-0.95 Direct Bilirubin 0.40 mg/dL High 0.03-0.18 Egfr 75.0 (?) >60 Egfr Non- 58.3 (?) >60 Globulin 4.1 High 2-4 Hematocrit 33 % Low 35-47 Hemoglobin 10.5 g/dL Low 12.0-16.0 Mean Corpuscular HGB Conc 32 g/dL 31-36 Mean Corpuscular Hemoglobin 28 pg 27-31 Mean Corpuscular Volume 90 fL 80-97 Mean Platelet Volume 10.3 Um3 7.4-10.4 Platelet Count 92 10 3/Ul Low 150-450 Potassium 4.1 mmol/L 3.5-5.0 Red Blood Count 3.70 10 6/Ul Low 4.0-5.4 Red Cell Distribution Width 18 % High 10.5-15 Sodium 134 mmol/L Low 139-145 Total Bilirubin 1.10 mg/dL High 0.2-1.0 Total Protein 7.1 g/dL 6.4-8.9 White Blood Count 3.9 10 3/Ul 3.5-10.8 Lab Report: Liver Function Tests, 03/20/2018 N2N/CCD Import Alb/Glob 0.6 ratio Basic Metabolic Albumin 2.7 g/dL Low 3.4-5.0 BUN 11 mg/dL 7-18 BUN/Creat 15.7 ratio Bilirubin,Direct 0.6 mg/dL High 0.0-0.2 Bilirubin,Total 1.1 mg/dL High 0.2-1.0 Calcium 8.8 mg/dL 8.5-10.1 Carbon Dioxide 20 mmol/L Low 21-32 Chloride 106 mmol/L 98-107 Creatinine 0.7 mg/dL 0.6-1.3 Eo% 0.7 % 0.0-6.6 Eos # 0.10 10*3/uL 0.0-0.5 Globulin 4.9 g/dL High 1.9-4.3 Glom Filtration Rate, Estimate >60 mL/min >60 Hematocrit 36.8 % 36.0-46.1 Hemoglobin 11.9 g/dL 11.6-15.8 Hemoglobin A1c/Hemoglobin.total in Blood 11.3 % High 4.2-6.3 If >60 >60 Lymph % 5.5 % Low 20.0-42.0 Mean Cell Volume 88.2 fL 80.9-99.0 Mean Corpuscular HGB 28.5 pg 25.9-32.7 Mean Corpuscular HGB Conc 32.3 g/dL 30.8-34.3 Mean Platelet Volume 12.1 fL 8.9-12.4 Microalbumin [Mass/volume] in Urine 6.8 mg/L < 20.0 [place] % 1.8 % Low 4.3-13.2 Neut% 91.8 % High 40.4-72.8 Platelet Count 80 10*3/mm3 Low 155-360 Potassium 4.4 mmol/L 3.5-5.1 Red Blood Count 4.17 M/Ul 3.90-5.40 Red Cell Distri Width SD 53.9 fL High 3-47 SGPT/Alt 27 U/L 12-78 Sgot/Ast 47 U/L High 15-37 Sodium 138 mmol/L 136-145 Thyroid Stim Hormone 2.01 u[iU]/mL 0.30-4.20 Total Protein 7.6 g/dL 6.4-8.2 White Blood Count 14.7 10*3/mm3 High 3.1-10.7 eAG 278 mg/dL Office Visit: Ov:diabetes f u, 03/20/2018 N2N/CCD Import Urinalysis yellow liver disease, vagi Urinalysis negative Urinalysis negative Urinalysis negative Urinalysis 2+ Urinalysis trace (5) Urinalysis negative Urinalysis 4+ Urinalysis 1.015 Urinalysis 5.0 CBS W/Automated Diff 12/12/2017 [facility] White Blood 5.8 K/uL N 3.1-10.[address] [place] [address] [phone] Red Blood Count 3.72 M/uL Low 3.90-5.40 Hemoglobin 11.1 gm/dL Low 11.6-15.8 Hematocrit 34.8 % Low 36.0-46.1 Mean Cell Volume 93.5 fl N 80.9-99.0 Mean Corpuscular HGB 29.8 pg N 25.9-32.7 Mean Corpuscular HGB Conc 31.9 g/dL N 30.8-34.3 Platelet Count 102 K/uL Low 155-360 Red Cell Distri Width SD 47.3 fl High 3-47 Red Cell Distri Width %CV 14.2 % N 11.7-14.4 Mean Platelet Volume 11.3 fL N 8.9-12.4 Neut% 61.0 % N 40.4-72.8 Lymph % 26.9 % N 20.0-42.0 [place] % 9.9 % N 4.3-13.2 Eo% 1.7 % N 0.0-6.6 Bas% 0.5 % N 0.0-1.1 Neut# 3.52 K/uL N 1.8-7.0 Lymph # 1.55 K/uL N 1.0-4.0 [place] # 0.57 K/uL N 0.3-0.9 Eos # 0.10 K/uL N 0.0-0.5 Baso # 0.03 K/uL N 0.0-0.1 Comprehensive Metabolic 12/12/2017 [facility] Glucose 156 mg/dL High 74-106 Panel [address] [place], [place] [id number] [phone] BUN 12 mg/dL N 7-18 Creatinine 0.7 mg/dL N 0.6-1.3 Glom Filtration Rate, Estimate >60 mL/min >60 If >60 mL/min >60 6 BUN/Creat 17.1 ratio Sodium 140 mmol/L N 136-145 Potassium 4.0 mmol/L N 3.5-5.1 Chloride 107 mmol/L N 98-107 Carbon Dioxide 24 mmol/L N 21-32 Anion Gap 9 mEq/L N 8-16 Calcium 9.0 mg/dL N 8.5-10.1 Total Protein 7.1 g/dL N 6.4-8.2 Albumin 2.9 g/dL Low 3.4-5.0 Globulin 4.2 g/dL N 1.9-4.3 Alb/Glob 0.7 ratio Bilirubin,Total 0.8 mg/dL N 0.2-1.0 Sgot/Ast 58 U/L High 15-37 SGPT/Alt 32 U/L N 12-78 Alkaline Phosphatase 163 U/L High 45-117 Laboratory test finding 12/12/2017 [facility] Cea 5.5 ng/mL 7 [address] [place] [address] [phone] Afp Tumor Marker,Serum 2.2 ng/mL 0.0-8.3 8 Albumin <pending> Cancer Antigen-GI (CA 19-9),[place] <pending> Carbohydrate Antigen 19-9 36.0 U/mL High 0-35 9 Lab Report: 12/12/2017 N2N/CCD Import Hemoglobin 7.5 % High 4.2-6.3 Glycohemoglobin A1c A1c/Hemoglobin.total in 7.5 Blood eAG 169 mg/dL Lab Report: Liver 12/12/2017 N2N/CCD Import Bilirubin,Direct 0.4 mg/dL High 0.0-0.2 Function Tests - alb 2.8, B2 0.4 Bilirubin,Total 0.9 mg/dL 0.2-1.0 Globulin 4.3 g/dL 1.9-4.3 SGPT/Alt 33 U/L 12-78 Sgot/Ast 59 U/L High 15-37 Thyroid Stim Hormone 14.80 u[iU]/mL High 0.30-4.20 Total Protein 7.1 g/dL 6.4-8.2 Lab Report: CMP, Lipid Panel, 08/28/2017 N2N/CCD Import Albumin 3.5 g/dL 3.2-5.2 TSH, CBS W/Diff, A1c Albumin/Globulin Ratio 1.0 1-3 Alkaline Phosphatase 99 U/L 34-104 Alt 16 U/L 7-52 Ast 39 U/L 13-39 BUN/Creatinine Ratio 12.7 8-20 Blood Urea Nitrogen 8 mg/dL 6-24 Calcium 8.7 mg/dL 8.6-10.3 Chloride 104 mmol/L 101-111 Cholesterol 211 mg/dL Cholesterol in LDL [Mass/volume] in Serum or 141 mg/dL Plasma Co2 Carbon Dioxide 27 mmol/L 22-32 Creatinine 0.63 mg/dL 0.51-0.95 Egfr 125.3 (?) >60 Egfr Non- 97.4 (?) >60 Globulin 3.6 2-4 HDL Cholesterol 27.5 mg/dL Hematocrit 37 % 35-47 Hemoglobin 12.4 g/dL 12.0-16.0 Hemoglobin A1c/Hemoglobin.total in Blood 7.4 % High Less than 6.0 Mean Corpuscular HGB Conc 33 g/dL 31-36 Mean Corpuscular Hemoglobin 30 pg 27-31 Mean Corpuscular Volume 91 fL 80-97 Potassium 4.0 mmol/L 3.5-5.0 Red Blood Count 4.09 10 6/Ul 4.0-5.4 Red Cell Distribution Width 15 % 10.5-15 Sodium 139 mmol/L 133-145 TSH (Thyroid Stimulating Horm) 4.17 u[iU]/mL 0.34-5.60 Total Bilirubin 0.90 mg/dL 0.2-1.0 Total Protein 7.1 g/dL 6.4-8.9 Triglycerides 211 mg/dL White Blood Count 4.5 10 3/Ul 3.5-10.8 Lab Report: ANGELES, 06/07/2017 N2N/CCD Import BUN/Creatinine Ratio 22.5 High 8-20 A1c, Hep B Surface AB Blood Urea Nitrogen 16 mg/dL 6-24 Calcium 9.2 mg/dL 8.6-10.3 Chloride 106 mmol/L 101-111 Co2 Carbon Dioxide 24 mmol/L 22-32 Creatinine 0.71 mg/dL 0.51-0.95 Egfr 109.1 (?) >60 Egfr Non- 84.8 (?) >60 Hemoglobin A1c/Hemoglobin.total in Blood 7.5 % High Less than 6.0 Potassium 4.3 mmol/L 3.5-5.0 Sodium 136 mmol/L 133-145 Office Visit: Ov: Follow up 06/07/2017 N2N/CCD Import Urinalysis 1+ Urinalysis trace (5) Urinalysis 1.010 Urinalysis trace Urinalysis 5.0 Urinalysis yellow Urinalysis negative Urinalysis negative Urinalysis negative Urinalysis negative CBS W/Automated 04/13/2017 [facility] White Blood 4.9 K/uL N 3.1-10.7 [address] [place] [address] [phone] Red Blood Count 3.84 M/uL Low 3.90-5.40 Hemoglobin 11.5 gm/dL Low 11.6-15.8 Hematocrit 36.2 % N 36.0-46.1 Mean Cell Volume 94.3 fl N 80.9-99.0 Mean Corpuscular HGB 29.9 pg N 25.9-32.7 Mean Corpuscular HGB Conc 31.8 g/dL N 30.8-34.3 Platelet Count 81 K/uL Low 150-400 Red Cell Distri Width SD 54.0 fl High 3-47 Red Cell Distri Width %CV 16.2 % High 11.7-14.4 Mean Platelet Volume 11.2 fL N 8.9-12.4 Neut% 53.5 % N 40.4-72.8 Lymph % 36.3 % N 20.0-42.0 [place] % 8.6 % N 4.3-13.2 Eo% 1.4 % N 0.0-6.6 Bas% 0.2 % N 0.0-1.1 Neut# 2.63 K/uL N 1.8-7.0 Lymph # 1.78 K/uL N 1.0-4.0 [place] # 0.42 K/uL N 0.3-0.9 Eos # 0.07 K/uL N 0.0-0.5 Baso # 0.01 K/uL N 0.0-0.1 Anticoagulant Therapy? NO Comprehensive Metabolic 04/13/2017 [facility] Glucose 259 mg/dL High 74-[address] [place] [address] [phone] BUN 15 mg/dL N 7-18 Creatinine 0.8 mg/dL N 0.6-1.3 Glom Filtration Rate, Estimate >60 mL/min >60 If >60 mL/min >60 11 BUN/Creat 18.7 ratio Sodium 142 mmol/L N 136-145 Potassium 4.0 mmol/L N 3.5-5.1 Chloride 106 mmol/L N 98-107 Carbon Dioxide 28 mmol/L N 21-32 Anion Gap 8 mEq/L N 8-16 Calcium 8.9 mg/dL N 8.5-10.1 Total Protein 7.3 g/dL N 6.4-8.2 Albumin 3.1 g/dL Low 3.4-5.0 Globulin 4.2 g/dL N 1.9-4.3 Alb/Glob 0.7 ratio Bilirubin,Total 0.7 mg/dL N 0.2-1.0 Sgot/Ast 41 U/L High 15-37 SGPT/Alt 29 U/L N 12-78 Alkaline Phosphatase 122 U/L High 45-117 Protime 04/13/2017 [facility] Protime 13.8 seconds N 12.0-14.[address] [place], [place] [id number] [phone] Inr 1.1 N 0.9-1.1 12 Anticoagulant Therapy? NO Laboratory 04/13/2017 [facility] Mitochondrial 93.6 High 0.0-20.0 13 test finding [address] (M2) Antibodies units [place], [place] [id number] [phone] Slide Review 04/13/2017 [facility] Slide Review (SEE [address] NOTE) [place], [place] [id number] [phone] Anticoagulant Therapy? NO Lab Report: CBC, CMP, Lipid 03/08/2017 N2N/CCD Import Albumin 3.5 g/dL 3.2-5.2 Panel, Mg, TSH, A1c Albumin/Globulin Ratio 1.0 1-3 Alkaline Phosphatase 110 U/L High 34-104 Alt 18 U/L 7-52 Ast 34 U/L 13-39 BUN/Creatinine Ratio 19.0 8-20 Blood Urea Nitrogen 12 mg/dL 6-24 Calcium 9.0 mg/dL 8.6-10.3 Chloride 105 mmol/L 101-111 Cholesterol 212 mg/dL Cholesterol in LDL [Mass/volume] in Serum or 136 mg/dL Plasma Co2 Carbon Dioxide 26 mmol/L 22-32 Creatinine 0.63 mg/dL 0.51-0.95 Egfr 125.3 (?) >60 Egfr Non- 97.4 (?) >60 Globulin 3.5 2-4 HDL Cholesterol 35.0 mg/dL Hematocrit 35 % 35-47 Hemoglobin 11.4 g/dL Low 12.0-16.0 Hemoglobin A1c/Hemoglobin.total in Blood 6.5 % High Less than 6.0 Mean Corpuscular HGB Conc 32 g/dL 31-36 Mean Corpuscular Hemoglobin 29 pg 27-31 Mean Corpuscular Volume 89 fL 80-97 Mean Platelet Volume 10 Um3 7.4-10.4 Platelet Count 79 10 3/Ul Low 150-450 Potassium 4.2 mmol/L 3.5-5.0 Red Blood Count 3.93 10 6/Ul Low 4.0-5.4 Red Cell Distribution Width 18 % High 10.5-15 Sodium 137 mmol/L 133-145 TSH (Thyroid Stimulating Horm) 4.59 u[iU]/mL 0.34-5.60 Total Protein 7.0 g/dL 6.4-8.9 Triglycerides 207 mg/dL White Blood Count 4.3 10 3/Ul 3.5-10.8 CBS W/Automated 12/20/2016 [facility] White Blood 4.0 K/uL N 3.1-10.7 [address] Count [place], [place] [id number] [phone] Red Blood Count 3.92 M/uL N 3.90-5.40 Hemoglobin 11.0 gm/dL Low 11.6-15.8 Hematocrit 35.0 % Low 36.0-46.1 Mean Cell Volume 89.3 fl N 80.9-99.0 Mean Corpuscular HGB 28.1 pg N 25.9-32.7 Mean Corpuscular HGB Conc 31.4 g/dL N 30.8-34.3 Platelet Count 83 K/uL Low 155-360 Red Cell Distri Width SD 51.4 fl High 3-47 Red Cell Distri Width %CV 16.0 % High 11.7-14.4 Mean Platelet Volume 10.9 fL N 8.9-12.4 Neut% 47.8 % N 40.4-72.8 Lymph % 38.7 % N 20.0-42.0 [place] % 10.5 % N 4.3-13.2 Eo% 2.5 % N 0.0-6.6 Bas% 0.5 % N 0.0-1.1 Neut# 1.92 K/uL N 1.8-7.0 Lymph # 1.55 K/uL N 1.0-4.0 [place] # 0.42 K/uL N 0.3-0.9 Eos # 0.10 K/uL N 0.0-0.5 Baso # 0.02 K/uL N 0.0-0.1 Comprehensive Metabolic 12/20/2016 [facility] Glucose 158 mg/dL High 74-[address] [place] [address] [phone] BUN 11 mg/dL N 7-18 Creatinine 0.7 mg/dL N 0.6-1.3 Glom Filtration Rate, Estimate >60 mL/min N >60 If >60 mL/min N >60 16 BUN/Creat 15.7 ratio N Sodium 143 mmol/L N 136-145 Potassium 3.8 mmol/L N 3.5-5.1 Chloride 107 mmol/L N 98-107 Carbon Dioxide 28 mmol/L N 21-32 Anion Gap 8 mEq/L N 8-16 Calcium 8.3 mg/dL Low 8.5-10.1 Laboratory 12/20/2016 [facility] Mitochondrial 112.7 High 0.0-20.0 17 test finding [address] (M2) [place] [address] [phone] Liver Function 12/20/2016 [facility] Total Protein 7.6 g/dL N 6.4-8.[address] [place] [address] [phone] Albumin 3.0 g/dL Low 3.4-5.0 Globulin 4.6 g/dL High 1.9-4.3 Alb/Glob 0.7 ratio N Bilirubin,Total 0.8 mg/dL N 0.2-1.0 Bilirubin,Direct 0.4 mg/dL High 0.0-0.2 Bilirubin,Indirect 0.4 mg/dL N 0.0-0.9 Sgot/Ast 48 U/L High 15-37 SGPT/Alt 33 U/L N 12-78 Alkaline Phosphatase 143 U/L High 45-117 T7/TSH 12/20/2016 [facility] T3 Uptake 30 % Low 31-39 [address] [place] [address] [phone] Thyroxine (T4) 15.2 g/dL High 4.7-13.3 T7 4.56 g/dL Low 5.0-12.0 Thyroid Stim Hormone 11.20 uIU/mL High 0.30-4.20 Laboratory test 12/20/2016 [facility] Slide Review . N 18 finding [address] [place] [address] [phone] Lab Report: CBC Auto 09/22/2016 N2N/CCD Import Albumin 3.8 g/dL 3.2-5.2 Diff, Comprehensive Metabolic Albumin/Globulin Ratio 1.0 1-3 Alkaline Phosphatase 125 U/L High 34-104 Alt 20 U/L 7-52 Ast 40 U/L High 13-39 BUN/Creatinine Ratio 21.0 High 8-20 Blood Urea Nitrogen 13 mg/dL 6-24 Calcium 9.9 mg/dL 8.6-10.3 Chloride 102 mmol/L 101-111 Co2 Carbon Dioxide 31 mmol/L 22-32 Creatinine 0.62 mg/dL 0.51-0.95 Globulin 3.7 2-4 Hematocrit 37 % 35-47 Hemoglobin 12.1 g/dL 12.0-16.0 Mean Corpuscular HGB Conc 33 g/dL 31-36 Mean Corpuscular Hemoglobin 29 pg 27-31 Mean Corpuscular Volume 88 fL 80-97 Mean Platelet Volume 9 Um3 7.4-10.4 Platelet Count 82 10 3/Ul Low 150-450 Potassium 3.5 mmol/L 3.5-5.0 Red Blood Count 4.20 10 6/Ul 4.0-5.4 Red Cell Distribution Width 15 % 10.5-15 Sodium 138 mmol/L 133-145 Total Protein 7.5 g/dL 6.4-8.9 White Blood Count 4.5 10 3/Ul 3.5-10.8 Lab Report: [id number], CBC With 09/02/2016 N2N/CCD Import Chloride, 101 mmol/L 97-108 Differential/Platelet, Serum Potassium, Serum 3.6 mmol/L 3.5-5.2 Sodium, Serum 140 mmol/L 134-144 Lab Report: [id number], CBC With 09/02/2016 N2N/CCD Import A/G Ratio 1.1 1.1- 2.5 Differential/Platelet, Albumin, Serum 3.7 g/dL 3.5-5.5 Alkaline Phosphatase, S 119 U/L High 39-117 Alt (SGPT) 18 U/L 0-32 Ast (Sgot) 40 U/L 0-40 BUN 9 mg/dL 6-24 BUN/Creatinine Ratio 15 9-23 Bilirubin, Total 0.8 mg/dL 0.0-1.2 Calcium, Serum 9.1 mg/dL 8.7-10.2 Carbon Dioxide, Total 22 mmol/L 18-29 Creatinine, Serum 0.60 mg/dL 0.57-1.00 Globulin, Total 3.4 1.5-4.5 Protein, Total, Serum 7.1 g/dL 6.0-8.5 eGFR If Africn Am 118 mL/min/1.73m2 >59 eGFR If NonAfricn Am 102 mL/min/1.73m2 >59 Lab Report: [id number], CBC 09/02/2016 N2N/CCD Import Cholesterol, 225 High 100-199 With Total mg/dL Differential/Platelet, Lab Report: [id number], CBC 09/02/2016 N2N/CCD Import Cholesterol in 144 High 0-99 With LDL mg/dL Differential/Platelet, [Mass/volume] in Serum or Plasma HDL Cholesterol 40 mg/dL >39 Triglycerides 203 mg/dL High 0-149 VLDL Cholesterol [place] 41 mg/dL High 5-40 Lab Report: [id number], CBC 09/02/2016 N2N/CCD Import Vitamin D, 37.2 30.0- 100.0 With 25-Hydroxy ng/mL Differential/Platelet, Lab Report: [id number], CBC 09/02/2016 N2N/CCD Import Magnesium, 1.4 Low 1.6- 2.3 With Serum mg/dL Differential/Platelet, Lab Report: [id number], CBC 09/02/2016 N2N/CCD Import Eos 0.1 0.0-0.4 With (Absolute) X10e3/Ul Differential/Platelet, Hematocrit 36.6 % 34.0-46.6 Hemoglobin 11.6 g/dL 11.1-15.9 Immature Granulocytes 0 % Lymphs 34 % Lymphs (Absolute) 1.3 X10e3/Ul 0.7-3.1 MCH 28.9 pg 26.6-33.0 MCHC 31.7 g/dL 31.5-35.7 MCV 91 fL 79-97 Monocytes 8 % Monocytes(Absolute) 0.3 X10e3/Ul 0.1-0.9 Neutrophils 56 % Platelets 78 X10e3/Ul Low 150-379 RBC 4.01 X10e6/Ul 3.77-5.28 RDW 15.1 % 12.3-15.4 WBC 3.9 X10e3/Ul 3.4-10.8 Lab Report: [id number], CBC 09/02/2016 N2N/CCD Import Hemoglobin 5.7 % High 4.8-5.6 With A1c/Hemoglobin.total Differential/Platelet, in Blood Lab Report: TSH 06/14/2016 N2N/CCD Import TSH 2.220 0.450-4. u[iU] 500 /mL Laboratory test finding 05/23/2016 [facility] Duodenum, Biopsy See [address] [place] [address] [phone] Lab Report: Hep B 04/14/2016 N2N/CCD Import Hemoglobin 5.9 % High 4.8- 5.6 Surface Ab, Hemoglobin A1c/Hemoglobin.total A1c, TSH, in Blood Lab Report: Hep B 04/14/2016 N2N/CCD Import TSH 4.530 High 0.450-4. Surface Ab, Hemoglobin u[iU] 500 A1c, TSH, /mL Laboratory test finding 03/02/2016 [facility] Gastric Biopsy/Polyp See [address] [place] [address] [phone] Lab Report: CMP14, Lipid 01/27/2016 N2N/CCD Import Chloride, Serum 102 97-108 Panel, TSH, Magnesium, mmol/ Se L Potassium, Serum 3.8 mmol/L 3.5-5.2 Sodium, Serum 142 mmol/L 134-144 Lab Report: 01/27/2016 N2N/CCD Import TSH 0.320 u[iU]/mL Low 0.450-4.500 CMP14, Lipid Panel, TSH, Magnesium, Se Lab Report: 01/27/2016 N2N/CCD Import Calcium, 9.7 mg/dL 8.7-10.2 CMP14, Lipid Serum Panel, TSH, Magnesium, Se Lab Report: 01/27/2016 N2N/CCD Import A/G Ratio 1.0 Low 1.1-2.5 CMP14, Lipid Panel, TSH, Magnesium, Se Albumin, Serum 3.9 g/dL 3.5-5.5 Ast (Sgot) 48 U/L High 0-40 BUN 10 mg/dL 6-24 Globulin, Total 3.8 1.5-4.5 Protein, Total, Serum 7.7 g/dL 6.0-8.5 Lab Report: CMP14, 01/27/2016 N2N/CCD Import Alkaline 200 U/L High 39- 117 Lipid Panel, TSH, Phosphatase, S Magnesium, Se Alt (SGPT) 32 U/L 0-32 BUN/Creatinine Ratio 18 9-23 Bilirubin, Total 0.9 mg/dL 0.0-1.2 Carbon Dioxide, Total 22 mmol/L 18-29 Cholesterol in LDL [Mass/volume] in Serum or 211 mg/dL High 0-99 Plasma Cholesterol, Total 303 mg/dL High 100-199 Creatinine, Serum 0.56 mg/dL Low 0.57-1.00 HDL Cholesterol 50 mg/dL >39 Magnesium, Serum 1.4 mg/dL Low 1.6-2.3 Triglycerides 211 mg/dL High 0-149 VLDL Cholesterol Getace[place] 42 mg/dL High 5-40 eGFR If Africn Am 121 mL/min/1.73m2 >59 eGFR If NonAfricn Am 105 mL/min/1.73m2 >59 Laboratory test 01/27/2016 [facility] Esophageal See Note [address] [place] [address] [phone] Lab Report: 01/21/2016 N2N/CCD Import Hemoglobin 5.8 % High 4.8-5 CBC:low Plt, Hb A1c/Hemoglobin.t .6 A1c 5.8% CMP,Mg, otal in Blood not d Lab Report: 01/21/2016 N2N/CCD Import Eos (Absolute) 0.1 0.0-0 CBC:low Plt, Hb X10e3/Ul .4 A1c 5.8% CMP,Mg, not d Hematocrit 36.2 % 34.0-46.6 Hemoglobin 12.0 g/dL 11.1-15.9 Immature Granulocytes 0 % Lymphs 35 % Lymphs (Absolute) 1.6 X10e3/Ul 0.7-3.1 MCH 30.2 pg 26.6-33.0 MCHC 33.1 g/dL 31.5-35.7 MCV 91 fL 79-97 Monocytes 9 % Monocytes(Absolute) 0.4 X10e3/Ul 0.1-0.9 Neutrophils 54 % Platelets 108 X10e3/Ul Low 150-379 RBC 3.98 X10e6/Ul 3.77-5.28 RDW 14.3 % 12.3-15.4 WBC 4.5 X10e3/Ul 3.4-10.8 Laboratory test 12/23/2015 [facility] Duodenum, Biopsy See Note 22 finding [address] [address] [phone] Laboratory test 11/11/2015 [facility] Duodenum, Biopsy See Note 23 finding [address] [place] [address] [phone] Lab Report: 10/06/2015 N2N/CCD Import Microalbumin 9.7 mg/L (< Urine [Mass/volume] in 20.0) Microalbumin, Urine TSH Thyroid Stim Hormone 0.39 u[iU]/mL (0.36-3.74) Lab Report: Liver Function Tests, 10/02/2015 N2N/CCD Import Alb/Glob 0.7 ratio Magnesium Albumin 3.1 g/dL Low (3.4-5.0) Alkaline Phosphatase 221 U/L High (45-117) Bilirubin,Direct 0.4 mg/dL High (0.0-0.2) Bilirubin,Indirect 0.4 mg/dL (0.0-0.9) Bilirubin,Total 0.8 mg/dL (0.2-1.0) Globulin 4.7 High (1.9-4.3) Magnesium 1.2 mg/dL Low (1.8-2.4) SGPT/Alt 43 U/L (12-78) Sgot/Ast 56 U/L High (15-37) Total Protein 7.8 g/dL (6.4-8.2) Lab Report: Comprehensive 09/17/2015 N2N/CCD Import A/G Ratio 1.0 (1.0- 2.5) Metabolic Panel W/Egfr, Albumin 3.8 g/dL (3.6-5.1) Alkaline Phosphatase 242 U/L High (33-130) Alt 36 U/L High (6-29) Ast 51 U/L High (10-35) BUN/Creatinine Ratio 19.5 (6-22) Bilirubin,Total 1.0 mg/dL (0.2-1.2) Calcium 9.7 mg/dL (8.6-10.4) Carbon Dioxide 23 mmol/L (19-30) Chloride 103 mmol/L (98-110) Cholesterol 283 mg/dL High (125-200) Cholesterol in LDL [Mass/volume] in Serum or 190 mg/dL High (<130) Plasma Cholesterol/HDL Ratio 6.4 High (< Or=5.0) Creatinine 0.57 mg/dL (0.50-1.05) Egfr 121 mL/min/1.73m2 (> Or=60) Egfr Non-Afr. [place] 104 mL/min/1.73m2 (> Or=60) Globulin,Calculated 3.9 High (1.9-3.7) HDL Cholesterol 44 mg/dL Low (> Or=46) Hematocrit 37.6 % (35.0-45.0) Hemoglobin 12.4 g/dL (11.7-15.5) Hemoglobin A1c/Hemoglobin.total in Blood 6.0 % High (0.0-5.6) MCH 30.3 pg (27.0-33.0) MCHC 33.0 g/dL (32.0-36.0) MCV 91.7 fL (80.0-100.0) Magnesium 1.5 mg/dL (1.5-2.5) Monocytes,% 7 % (4-12) Platelet Count 121 10*3/mm3 Low (140-400) Potassium 3.7 mmol/L (3.5-5.3) Protein,Total 7.7 g/dL (6.1-8.1) RBC 4.10 10*6/mm3 (3.80-5.10) RBC Morphology Normal Sodium 138 mmol/L (135-146) Triglycerides 244 mg/dL High (<150) Urea Nitrogen 11 mg/dL (7-25) WBC 5.5 10*3/mm3 (3.8-10.8) Lab Report: Magnesium, 06/13/2015 N2N/CCD Import Magnesium 1.1 mg/dL Low (1.8-2.4) TSH Reflex FT4 and/or FT3 Thyroid Stim Hormone 4.60 u[iU]/mL High (0.36-3.74) Lab Report: Basic Metabolic Panel, 06/02/2015 N2N/CCD Import BUN 11 mg/dL (7-18) Magnesium, Thyr BUN/Creat 15.7 ratio Calcium 9.1 mg/dL (8.5-10.1) Carbon Dioxide 25 mmol/L (21-32) Chloride 103 mmol/L (98-107) Creatinine 0.7 mg/dL (0.6-1.3) Glom Filtration Rate, Estimate >60 mL/min (>60) Hemoglobin A1c/Hemoglobin.total in Blood 5.8 % (4.2-6.3) If >60 mL/min (>60) Magnesium 1.3 mg/dL Low (1.8-2.4) Potassium 3.9 mmol/L (3.5-5.1) Sodium 136 mmol/L (136-145) Thyroid Stim Hormone 10.50 u[iU]/mL High (0.36-3.74) Vitamin D,25-Hydroxy 36.5 ng/mL (30.0-100.0) eAG 120 mg/dL Lab Report: Mg 02/19/2015 N2N/CCD Import Magnesium 1.0 mg/dL Low (1.8-2.4 ) Lab Report: CBS 02/19/2015 N2N/CCD Import Alb/Glob 0.9 ratio W/Diff, A1c, CMP, Lipid Panel, TSH Albumin 3.5 g/dL (3.4-5.0) Alkaline Phosphatase 242 U/L High (45-117) BUN 11 mg/dL (7-18) BUN/Creat 15.7 ratio Bilirubin,Total 0.6 mg/dL (0.2-1.0) Calcium 9.3 mg/dL (8.5-10.1) Carbon Dioxide 28 mmol/L (21-32) Chloride 104 mmol/L (98-107) Cholesterol 203 mg/dL (< 200) Cholesterol in LDL [Mass/volume] in Serum or Plasma 121 mg/dL (< 100) Creatinine 0.7 mg/dL (0.6-1.3) Eo% 1.7 % (0.0-6.6) Eos # 0.09 K/uL (0.0-0.5) Free T3 3.19 pg/mL (2.18-3.98) Free T4 1.75 ng/dL High (0.76-1.46) Globulin 4.1 (1.9-4.3) Glom Filtration Rate, Estimate >60 mL/min (>60) HDL Cholesterol 44 mg/dL (> 40) Hematocrit 39.1 % (36.0-46.1) Hemoglobin 12.7 g/dL (11.6-15.8) Hemoglobin A1c/Hemoglobin.total in Blood 6.1 % (4.2-6.3) If >60 mL/min (>60) Lymph # 1.61 10*3/mm3 Low (1.8-7.0) Lymph % 30.0 % (17.0-46.1) Mean Cell Volume 95.8 fL (80.9-99.0) Mean Corpuscular HGB 31.1 pg (25.9-32.7) Mean Corpuscular HGB Conc 32.5 g/dL (30.8-34.3) Mean Platelet Volume 10.5 fL (8.9-12.4) [place] # 0.38 10*3/mm3 (0.3-0.9) [place] % 7.1 % (4.3-13.2) Neut# 3.25 K/uL (1.0-7.0) Neut% 60.6 % (40.4-72.8) Platelet Count 127 10*3/mm3 Low (155-360) Potassium 4.3 mmol/L (3.5-5.1) Red Blood Count 4.08 M/Ul (3.90-5.40) Red Cell Distri Width %CV 13.7 % (11.7-14.4) Red Cell Distri Width SD 46.9 fL (3-47) SGPT/Alt 40 U/L (12-78) Sgot/Ast 50 U/L High (15-37) Sodium 139 mmol/L (136-145) Thyroid Stim Hormone 0.10 u[iU]/mL Low (0.36-3.74) Total Protein 7.6 g/dL (6.4-8.2) Triglycerides 191 mg/dL (< 150) Vitamin D,25-Hydroxy 13.9 ng/mL Low (30.0-100.0) White Blood Count 5.4 10*3/mm3 (3.1-10.7) eAG 128 mg/dL Lab Report: CBS W/Diff, A1c, CMP, 11/13/2014 N2N/CCD Import Alb/Glob 0.8 ratio TSH with Reflex, Albumin 3.4 g/dL (3.4-5.0) Alkaline Phosphatase 311 U/L High (45-117) BUN 16 mg/dL (7-18) BUN/Creat 17.7 ratio Bilirubin,Total 0.7 mg/dL (0.2-1.0) Calcium 9.0 mg/dL (8.5-10.1) Carbon Dioxide 26 mmol/L (21-32) Chloride 104 mmol/L (98-107) Creatinine 0.9 mg/dL (0.6-1.3) Eo% 1.2 % (0.0-6.6) Eos # 0.08 K/uL (0.0-0.5) Free T3 3.00 pg/mL (2.18-3.98) Free T4 1.96 ng/dL High (0.76-1.46) Globulin 4.2 (1.9-4.3) Glom Filtration Rate, Estimate >60 mL/min (>60) Hematocrit 39.8 % (36.0-46.1) Hemoglobin 13.0 g/dL (11.6-15.8) Hemoglobin A1c/Hemoglobin.total in Blood 6.7 % High (4.2-6.3) If >60 mL/min (>60) Lymph # 2.13 10*3/mm3 (0.8-3.4) Lymph % 30.9 % (17.0-46.1) Mean Cell Volume 93.4 fL (80.9-99.0) Mean Corpuscular HGB 30.5 pg (25.9-32.7) Mean Corpuscular HGB Conc 32.7 g/dL (30.8-34.3) Mean Platelet Volume 11.2 fL (8.9-12.4) [place] # 0.55 10*3/mm3 (0.3-0.9) [place] % 8.0 % (4.3-13.2) Neut# 4.11 K/uL (1.0-7.0) Neut% 59.6 % (40.4-72.8) Platelet Count 157 10*3/mm3 (155-360) Potassium 4.5 mmol/L (3.5-5.1) Red Blood Count 4.26 M/Ul (3.90-5.40) Red Cell Distri Width %CV 13.5 % (11.7-14.4) Red Cell Distri Width SD 45.1 fL (3-47) SGPT/Alt 56 U/L (12-78) Sgot/Ast 57 U/L High (15-37) Sodium 137 mmol/L (136-145) Thyroid Stim Hormone 0.04 u[iU]/mL Low (0.36-3.74) Total Protein 7.6 g/dL (6.4-8.2) Vitamin D,25-Hydroxy 18.2 ng/mL Low (30.0-100.0) White Blood Count 6.9 10*3/mm3 (3.1-10.7) eAG 146 mg/dL Append: : 05/23/2014 N2N/CCD Import Challenge tests 0 mm Lab Report: CBC, 04/18/2014 N2N/CCD Import Alb/Glob 0.7 ratio Glycohemoglobin A1c, Comprehensiv Albumin 3.3 g/dL Low (3.5-5.0) Alkaline Phosphatase 320 U/L High (50-136) BUN 11 mg/dL (5-23) BUN/Creat 18.3 ratio Bilirubin,Total 0.8 mg/dL (0.2-1.2) Calcium 9.5 mg/dL (8.5-10.1) Carbon Dioxide 26 mEq/L (18-29) Chloride 105 mmol/L (98-107) Cholesterol 340 mg/dL High (120-200) Cholesterol in LDL [Mass/volume] in Serum or 233 mg/dL High (62-185) Plasma Creatinine 0.6 mg/dL (0.5-1.4) Globulin 4.8 High (1.9-4.3) Glom Filtration Rate, Estimate >60 mL/min (>60) HDL Cholesterol 31 mg/dL (29-83) Hematocrit 40.3 % (36.0-46.1) Hemoglobin 13.5 g/dL (11.6-15.8) Hemoglobin A1c/Hemoglobin.total in Blood 7.5 % High (4.8-6.0) If >60 mL/min (>60) Mean Cell Volume 95.7 fL (80.9-99.0) Mean Corpuscular HGB 32.1 pg (25.9-32.7) Mean Corpuscular HGB Conc 33.5 g/dL (30.8-34.3) Mean Platelet Volume 10.3 fL (8.9-12.4) Platelet Count 162 10*3/mm3 (155-360) Potassium 4.2 mmol/L (3.5-5.1) Red Blood Count 4.21 M/Ul (3.90-5.40) Red Cell Distri Width %CV 13.5 % (11.7-14.4) SGPT/Alt 86 U/L High (30-65) Sgot/Ast 85 U/L High (16-40) Sodium 137 mmol/L (136-145) Thyroid Stim Hormone 10.10 u[iU]/mL High (0.49-4.67) Total Protein 8.1 g/dL High (6.3-8.0) Triglycerides 381 mg/dL High (16-231) Vitamin D,25-Hydroxy 26.1 ng/mL Low (30.0-100.0) White Blood Count 6.3 10*3/mm3 (3.1-10.7) eAG 169 mg/dL Lab Report: CBS W/Automated Diff, 01/20/2014 N2N/CCD Import Alb/Glob 0.8 ratio Glycohemoglobin Albumin 3.6 g/dL (3.5-5.0) Alkaline Phosphatase 253 U/L High (50-136) BUN 13 mg/dL (5-23) BUN/Creat 21.6 ratio Bilirubin,Total 0.8 mg/dL (0.2-1.2) Calcium 9.8 mg/dL (8.5-10.1) Carbon Dioxide 28 mEq/L (18-29) Chloride 103 mmol/L (98-107) Cholesterol 367 mg/dL High (120-200) Cholesterol in LDL [Mass/volume] in Serum or Plasma 268 mg/dL High (62-185) Creatinine 0.6 mg/dL (0.5-1.4) Eo% 2.3 % (0.0-6.6) Eos # 0.14 K/uL (0.0-0.5) Globulin 4.7 High (1.9-4.3) Glom Filtration Rate, Estimate >60 mL/min (>60) HDL Cholesterol 46 mg/dL (29-83) Hematocrit 41.3 % (36.0-46.1) Hemoglobin 13.6 g/dL (11.6-15.8) Hemoglobin A1c/Hemoglobin.total in Blood 6.6 % High (4.8-6.0) If >60 mL/min (>60) Lymph # 1.71 10*3/mm3 (0.8-3.4) Lymph % 27.9 % (17.0-46.1) Mean Cell Volume 97.2 fL (80.9-99.0) Mean Corpuscular HGB 32.0 pg (25.9-32.7) Mean Corpuscular HGB Conc 32.9 g/dL (30.8-34.3) Mean Platelet Volume 10.4 fL (8.9-12.4) [place] # 0.47 10*3/mm3 (0.3-0.9) [place] % 7.7 % (4.3-13.2) Neut# 3.76 K/uL (1.0-7.0) Neut% 61.1 % (40.4-72.8) Platelet Count 178 10*3/mm3 (155-360) Potassium 4.5 mmol/L (3.5-5.1) Red Blood Count 4.25 M/Ul (3.90-5.40) Red Cell Distri Width %CV 13.7 % (11.7-14.4) Red Cell Distri Width SD 47.7 fL High (3-47) SGPT/Alt 83 U/L High (30-65) Sgot/Ast 68 U/L High (16-40) Sodium 137 mmol/L (136-145) Thyroid Stim Hormone 7.16 u[iU]/mL High (0.49-4.67) Total Protein 8.3 g/dL High (6.3-8.0) Triglycerides 266 mg/dL High (16-231) Vitamin D,25-Hydroxy 15.6 ng/mL Low (30.0-100.0) White Blood Count 6.1 10*3/mm3 (3.1-10.7) eAG 143 mg/dL Append: Ov: paperwork 04/18/2013 N2N/CCD Import Challenge tests 0 mm for staffkings Lab Report: 02/13/2013 N2N/CCD Import Hemoglobin 6.2 % High (4.8-6. Glycohemoglobin A1c A1c/Hemoglobin.to 0) irvin in Blood eAG 131 mg/dL Lab Report: Lipid 02/07/2013 N2N/CCD Import Cholesterol 266 mg/dL High ( 120-200) Panel, TSH, A1c Cholesterol in LDL [Mass/volume] in Serum or Plasma 178 mg/dL (62-185) HDL Cholesterol 54 mg/dL (29-83) Thyroid Stim Hormone 1.60 u[iU]/mL (0.49-4.67) Triglycerides 170 mg/dL (16-231) Lab Report: 06/26/2012 N2N/CCD Import Hemoglobin 6.8 % High (4.8-6.0) A1c A1c/Hemoglobin.total in Blood eAG 148 mg/dL Lab Report: Liver Function Tests, 03/15/2012 N2N/CCD Import Alb/Glob 1.2 ratio Lipid Panel, TSH Albumin 4.2 g/dL 3.5-5.0 Alkaline Phosphatase 91 U/L 50-136 Bilirubin,Direct 0.1 mg/dL 0.1-0.4 Bilirubin,Indirect 0.2 mg/dL 0.0-0.9 Bilirubin,Total 0.3 mg/dL 0.2-1.2 Cholesterol 214 mg/dL High 120-200 Cholesterol in LDL [Mass/volume] in Serum or Plasma 107 mg/dL 62-185 Globulin 3.4 1.9-4.3 HDL Cholesterol 63 mg/dL 29-83 SGPT/Alt 55 U/L 30-65 Sgot/Ast 35 U/L 16-40 Thyroid Stim Hormone 1.25 u[iU]/mL 0.49-4.67 Total Protein 7.6 g/dL 6.3-8.0 Triglycerides 222 mg/dL 16-231 Lab Report: Comprehensive 11/09/2011 N2N/CCD Import A/G Ratio 1.7 1.0- 2.1 Metabolic Panel W/Egfr, Albumin 4.4 g/dL 3.6-5.1 Alkaline Phosphatase 124 U/L 33-130 Alt 37 U/L 6-40 Ast 30 U/L 10-35 BUN/Creatinine Ratio 19.4 6-22 Bilirubin,Total 0.4 mg/dL 0.2-1.2 Calcium 9.8 mg/dL 8.6-10.2 Carbon Dioxide 24 mmol/L 21-33 Chloride 103 mmol/L 98-110 Cholesterol 214 mg/dL High 125-200 Cholesterol in LDL [Mass/volume] in Serum or Plasma 110 mg/dL <130 Cholesterol/HDL Ratio 3.8 < Or=5.0 Creatinine 0.71 mg/dL 0.60-1.10 Globulin,Calculated 2.6 2.2-3.9 HDL Cholesterol 56 mg/dL > Or=46 Potassium 4.1 mmol/L 3.5-5.3 Protein,Total 7.0 g/dL 6.2-8.3 Sodium 137 mmol/L 135-146 Triglycerides 242 mg/dL High <150 Urea Nitrogen 14 mg/dL 7-25 Append: Lab/Xray 11/07/2011 N2N/CCD Import Hemoglobin 6.1 % Follow Up: A1c/Hemoglobin.total in Blood Lab Report: 07/06/2011 N2N/CCD Import Chemistry 4.0 (1.9-4 Comprehensive .3) Metabolic Panel, LDL Cho Chemistry 3.5 g/dL (3.5-5.0) Chemistry 7.5 g/dL (6.3-8.0) Chemistry 9.3 mg/dL (8.5-10.1) Chemistry 29 mmol/L (21-32) Chemistry 104 mmol/L (98-107) Chemistry 4.0 mmol/L (3.5-5.1) Chemistry 139 mmol/L (136-145) Chemistry 20.0 Chemistry >60 mL/min (>60) Chemistry 0.6 mg/dL (0.5-1.4) Chemistry 12 mg/dL (5-23) Chemistry 0.9 Chemistry 0.2 mg/dL (0.2-1.2) Chemistry 25 U/L (16-40) Chemistry 49 U/L (30-65) Chemistry 144 U/L High (50-136) Chemistry 278 mg/dL High (120-200) Chemistry 291 mg/dL High (0-210) Chemistry 43 mg/dL (32-96) Chemistry 1.48 u[iU]/mL (0.49-4.67) Chemistry 1.15 ng/dL (0.71-1.85) Cholesterol in LDL [Mass/volume] in Serum or Plasma 177 mg/dL (62-185) Genetics/fertility >60 mL/min (>60) Hemoglobin A1c/Hemoglobin.total in Blood 6.0 % (4.8-6.0) Microalbumin [Mass/volume] in Urine < 6.0 mg/L (0.0-15.0) Lab Report: 12/27/2010 N2N/CCD Import Chemistry 244 mg/dL High (120-200) Glycohemoglobin A1c, LDL Cholesterol P Chemistry 250 mg/dL High (0-210) Chemistry 42 mg/dL (32-96) Cholesterol in LDL [Mass/volume] in Serum or Plasma 152 mg/dL (62-185) Hemoglobin A1c/Hemoglobin.total in Blood 6.1 % High (4.8-6.0) Lab Report: CBC, Liver 09/07/2010 N2N/CCD Import Chemistry 0.5 mg/dL ( 0.2-1.2) Function Tests, LDL Cholest Chemistry 0.2 mg/dL (0.1-0.4) Chemistry 0.3 mg/dL (0.0-0.9) Chemistry 35 U/L (16-40) Chemistry 58 U/L (30-65) Chemistry 189 U/L High (50-136) Chemistry 3.7 (1.9-4.3) Chemistry 1.0 Chemistry 278 mg/dL High (120-200) Chemistry 160 mg/dL (0-210) Chemistry 62 mg/dL (32-96) Chemistry 3.7 g/dL (3.5-5.0) Chemistry 7.4 g/dL (6.3-8.0) Chemistry 0.63 u[iU]/mL (0.49-4.67) Cholesterol in LDL [Mass/volume] in Serum or Plasma 184 mg/dL (62-185) Hematology 8.6 10*3/mm3 (3.1-10.7) Hematology 4.42 M/Ul (3.90-5.40) Hematology 13.8 g/dL (11.6-15.8) Hematology 42.6 % (36.0-46.1) Hematology 96.4 fL (80.9-99.0) Hematology 31.2 pg (25.9-32.7) Hematology 32.4 g/dL (30.8-34.3) Hematology 191 10*3/mm3 (155-360) Hematology 13.0 % (11.7-14.4) Hematology 10.6 fL (8.9-12.4) Hemoglobin A1c/Hemoglobin.total in Blood 5.8 % (4.8-6.0) Lab Report: 12/29/2009 N2N/CCD Import Chemistry 7.8 g/dL (6.3-8.0) Glycohemoglobin A1c, Liver Function Te Chemistry 3.7 g/dL (3.5-5.0) Chemistry 0.5 mg/dL (0.2-1.2) Chemistry 0.2 mg/dL (0.1-0.4) Chemistry 0.3 mg/dL (0.0-0.9) Chemistry 72 U/L High (16-40) Chemistry 94 U/L High (30-65) Chemistry 196 U/L High (50-136) Chemistry 4.1 (1.9-4.3) Chemistry 0.9 Chemistry 279 mg/dL High (120-200) Chemistry 181 mg/dL (0-210) Chemistry 65 mg/dL (32-96) Cholesterol in LDL [Mass/volume] in Serum or Plasma 178 mg/dL (62-185) Hemoglobin A1c/Hemoglobin.total in Blood 6.4 % High (4.8-6.0) 1 K74.3 2 Note: Persistent reduction for 3 months or more in an eGFR <60 mL/min/1.73 m2 defines CKD. Patients with eGFR values >/=60 mL/min/1.73 m2 may also have CKD if evidence of persistent proteinuria is present. The original MDRD equation for estimated GFR is not valid for patients less than 18 years of age. Additional information may be found at www.kdoqi.org. 3 THERAPEUTIC INR RANGE: 2.0 - 3.0 DVT, Pulmonary embolus, prophylaxis against venous thrombosis or systemic embolization in high risk patients. 2.5 - 3.5 Mechanical heart valves 4 Method: Sediplast Modified Westergren 5 R14.0 6 Note: Persistent reduction for 3 months or more in an eGFR <60 mL/min/1.73 m2 defines CKD. Patients with eGFR values >/=60 mL/min/1.73 m2 may also have CKD if evidence of persistent proteinuria is present. The original MDRD equation for estimated GFR is not valid for patients less than 18 years of age. Additional information may be found at www.kdoqi.org. 7 Non-smokers ..... 0.0-3.0 ng/mL Smokers ......... 0.0-5.0 ng/mL THIS ASSAY IS NOT INTENDED A CANCER SCREENING TEST The concentration of CEA in a given specimen, determined with assays from different manufacturers, can vary due to differences in assay methods and reagent specificity. Values obtained from different assay methods cannot be used interchangeably. Method: Siemens RxRevu [place] Chemiluminescent Immunoassay 8 Normal values apply only to males and to non females. These results are not interpretable for females. Tomasz ECLIA methodology. Values obtained with different assay methods or kits cannot be used interchangeably. Results cannot be interpreted as absolute evidence of the presence or absence of malignant disease. 9 Tomasz ECLIA methodology Values obtained with different assay methods or kits cannot be used interchangeably. Results cannot be interpreted as absolute evidence of the presence or absence of malignant disease. Performed at: [facility] [id number] [employer] Fil[employer]: Jodi Sanford MD, Phone: [phone] 10 K74.3 11 Note: Persistent reduction for 3 months or more in an eGFR <60 mL/min/1.73 m2 defines CKD. Patients with eGFR values >/=60 mL/min/1.73 m2 may also have CKD if evidence of persistent proteinuria is present. The original MDRD equation for estimated GFR is not valid for patients less than 18 years of age. Additional information may be found at www.kdoqi.org. 12 THERAPEUTIC INR RANGE: 2.0 - 3.0 DVT, Pulmonary embolus, prophylaxis against venous thrombosis or systemic embolization in high risk patients. 2.5 - 3.5 Mechanical heart valves 13 Negative 0.0 - 20.0 Equivocal 20.1 - 24.9 Positive >24.9 Mitochondrial (M2) Antibodies are found in 90-96% of patients with primary biliary cirrhosis. Performed at: [facility] [address] [id number] [employer]: Jodi Sanford MD, Phone: [phone] Instrument flagged sample for slide review. Less than 10% Bands seen, no other immature WBC's seen. RBC morphology essentially normal. Platelet estimate=MODERATE DECREASE 15 K74.3 R68.2 16 Note: Persistent reduction for 3 months or more in an eGFR <60 mL/min/1.73 m2 defines CKD. Patients with eGFR values >/=60 mL/min/1.73 m2 may also have CKD if evidence of persistent proteinuria is present. The original MDRD equation for estimated GFR is not valid for patients less than 18 years of age. Additional information may be found at www.kdoqi.org. 17 Negative 0.0 - 20.0 Equivocal 20.1 - 24.9 Positive >24.9 Mitochondrial (M2) Antibodies are found in 90-96% of patients with primary biliary cirrhosis. Performed at: - [facility] [id number] [employer]: Jodi Sanford MD, Phone: [phone] Instrument flagged sample for slide review. Less than 10% Bands seen, no other immature WBC's seen. RBC morphology 1+ ANISOCYTOSIS. Platelet estimate=MODERATELY DECREASED 19 OPERATION/PROCEDURE Upper endoscopy DIAGNOSIS: "DUODENUM, RANDOM, BIOPSY": - BENIGN SMALL INTESTINAL MUCOSA WITH NO SIGNIFICANT PATHOLOGIC ABNORMALITIES. - NO EVIDENCE OF VILLOUS BLUNTING OR INCREASED INTRAEPITHELIAL LYMPHOCYTES. EP/timothy 1428 GROSS Received in formalin in one appropriately labeled container with the patient' s name and accession number. The specimen is designated as "RANDOM DUODENAL BIOPSY" and consists of multiple pieces of luna soft rubbery tissue measuring 0.8 x 0.7 x 0.3 cm. in aggregate. The specimen is submitted entirely in a single cassette. CC/timothy PRE OPERATIVE DIAGNOSIS Cirrhosis; GERD REVIEW CODE CODE: I Signed Electronically signed Brian VELARDE MD [id number] 20 OPERATION/PROCEDURE Gastroscopy DIAGNOSIS: "STOMACH, ANTRUM, BIOPSY": - ANTRUM-TYPE MUCOSA WITH MILD CHRONIC GASTRITIS. [facility] 1137 GROSS Received in formalin in a properly labeled container with the patient's name and accession number designated, "ANTRAL BIOPSIES". The specimen consists of a single piece of luna, soft rubbery tissue measuring 0.5 x 0.4 x 0.2 cm. Submitted entirely , one cassette. [facility] PRE OPERATIVE DIAGNOSIS Primary biliary cirrhosis REVIEW CODE CODE: I Signed Electronically signed Brian VELARDE MD 1157 21 OPERATION/PROCEDURE Gastroscopy, esophageal banding of varices DIAGNOSIS: PART 1: "SMALL BOWEL, RANDOM BIOPSIES": - SMALL BOWEL MUCOSA WITH NORMAL VILLOUS ARCHITECTURE AND NO SIGNIFICANT PATHOLOGIC ABNORMALITY. - NO INFECTIOUS AGENTS OR VIRAL PATHOLOGIC CHANGES IDENTIFIED. PART 2: "ESOPHAGUS, BIOPSY": - GASTROESOPHAGEAL TRANSITION ZONE MUCOSA WITH MILD REFLUX ESOPHAGITIS. - NO GOBLET CELL METAPLASIA OR DYSPLASIA IDENTIFIED. [facility] 1031 GROSS Received in formalin in two [...] soft rubbery tissue. Submitted entirely, one cassette. [facility] PRE OPERATIVE DIAGNOSIS Cirrhosis REVIEW CODE CODE: I Signed Electronically signed MARLA PEARL MD 1118 22 OPERATION/PROCEDURE Upper endoscopy DIAGNOSIS: "SMALL BOWEL, DUODENUM, RANDOM BIOPSIES": - SMALL BOWEL MUCOSA WITH NORMAL VILLOUS ARCHITECTURE, NO SIGNIFICANT PATHOLOGIC ABNORMALITIES. [facility] 1025 GROSS Received in formalin in a properly labeled container with the patient's name and accession number designated, "RANDOM DUODENAL BIOPSY". The specimen consists of multiple pieces of luna, soft rubbery tissue measuring 0.6 x 0.5 x 0.2 cm. in aggregate. Submitted entirely, one cassette. [facility] PRE OPERATIVE DIAGNOSIS Primary biliary cirrhosis REVIEW CODE CODE: I Signed Electronically signed MARLA PEARL MD 1131 23 OPERATION/PROCEDURE Colonoscopy, upper endoscopy DIAGNOSIS: PART 1: "COLON, RANDOM, BIOPSY": - BENIGN COLONIC MUCOSA WITH NO SIGNIFICANT PATHOLOGIC ABNORMALITIES. - NO EVIDENCE OF MICROSCOPIC COLITIS. PART 2: "DUODENUM, RANDOM, BIOPSY": - BENIGN SMALL INTESTINAL MUCOSA WITH NO SIGNIFICANT PATHOLOGIC ABNORMALITIES. - NO EVIDENCE OF VILLOUS BLUNTING OR INCREASED INTRAEPITHELIAL LYMPHOCYTES. /[facility] 1022 GROSS The specimen is received in [...] signed Brian VELARDE MD 1144 Procedures Date Code Description Status 10/23/2018 63953 Bronchospasm Provocation Evaluation Multi Spirometric Completed Determinati 10/23/2018 00699 Spirometry Completed 09/05/2018 93370 Echocardiogram Complete Completed 12/22/2017 91492 Radiology, Wrist Complete Completed 11/29/2017 98708 Radiology, Wrist Complete Completed 11/29/2017 03501 Fracture distal radial-closed Completed 05/10/2017 46815 EGD With Biopsy Completed 05/23/2016 56340 EGD With Band Ligation Of Varic Completed 05/23/2016 94220 EGD With Biopsy Completed 03/02/2016 38126 EGD With Biopsy Completed 01/27/2016 17935 EGD With Band Ligation Of Varic Completed 12/23/2015 01019 EGD With Band Ligation Of Varic Completed 12/23/2015 11658 EGD With Biopsy Completed 11/11/2015 22995 Colonoscopy With Biopsy Completed 11/11/2015 24972 Endoscopy Small Intestine W/Biopsy Completed 11/11/2015 17976132 Colonoscopy Completed Encounters Type Date Location Provider Dx Diagnosis Office Visit 02/12/2019 Pulmonology Lamar Dickey PA J44.9 Chronic obstructive 9:40a pulmonary disease, unspecified R09.02 Hypoxemia R60.9 Edema, unspecified F17.210 Nicotine dependence, cigarettes, uncomplicated Z71.6 Tobacco abuse counseling Office Visit 12/11/2018 9:00a Pulmonology Lamar Dickey J44.9 Chronic obstructive PA pulmonary disease, unspecified R68.2 Dry mouth, unspecified R60.9 Edema, unspecified R09.02 Hypoxemia E11.622 Type 2 diabetes mellitus with other skin ulcer F17.210 Nicotine dependence, cigarettes, uncomplicated Z71.6 Tobacco abuse counseling Office Visit 10/08/2018 2:00p Pulmonology Caesar Card MD J44.9 Chronic obstructive pulmonary disease, unspecified Z12.2 Encntr screen for malignant neoplasm of respiratory organs F17.211 Nicotine dependence, cigarettes, in remission R68.2 Dry mouth, unspecified R00.2 Palpitations Office Visit 07/26/2018 2:15p GI Jesus Sutherland MD K74.3 Primary biliary cirrhosis R93.3 Abnormal findings on dx imaging of prt digestive tract R19.7 Diarrhea, unspecified Office Visit 04/26/2018 9:45a GI Jesus Sutherland MD R19.7 Diarrhea, unspecified K74.3 Primary biliary cirrhosis Office Visit 04/03/2018 1:45p Jesus Escoto MD K74.3 Primary biliary cirrhosis Office Visit 01/16/2018 8:45a Jesus Escoto MD K74.3 Primary biliary cirrhosis R93.3 Abnormal findings on dx imaging of prt digestive tract R19.7 Diarrhea, unspecified Office Visit 12/26/2017 9:15a Jesus Escoto MD K74.3 Primary biliary cirrhosis R94.5 Abnormal results of liver function studies R19.7 Diarrhea, unspecified Office Visit 12/12/2017 8:30a Jesus Escoto MD R19.7 Diarrhea, unspecified R14.0 Abdominal distension (gaseous) Office Visit 11/23/2017 9:00a Jesus Escoto MD K58.0 Irritable bowel syndrome with diarrhea Office Visit 10/24/2017 10:00a Jesus Escoto MD K58.0 Irritable bowel syndrome with diarrhea Office Visit 05/25/2017 3:15p Jesus Escoto MD K29.70 Gastritis, unspecified, without bleeding K58.0 Irritable bowel syndrome with diarrhea K74.3 Primary biliary cirrhosis Z72.0 Tobacco use Office Visit 04/13/2017 2:30p Jesus Escoto MD K74.3 Primary biliary cirrhosis K58.0 Irritable bowel syndrome with diarrhea J45.901 Unspecified asthma with (acute) exacerbation Office Visit 02/23/2017 10:30a Jesus Escoto MD K74.3 Primary biliary cirrhosis K58.0 Irritable bowel syndrome with diarrhea M79.604 Pain in right leg M79.605 Pain in left leg Office Visit 01/19/2017 1:30p Jesus Escoto MD K58.0 Irritable bowel syndrome with diarrhea K74.3 Primary biliary cirrhosis Office Visit 12/20/2016 2:30p Jesus Escoto MD K58.0 Irritable bowel syndrome with diarrhea K74.3 Primary biliary cirrhosis Office Visit 08/18/2016 11:00a Jesus Escoto MD K58.0 Irritable bowel syndrome with diarrhea K74.3 Primary biliary cirrhosis Office Visit 06/30/2016 3:00p Jose Guadalupe Conrad MD K74.3 Primary biliary cirrhosis M35.00 Sicca syndrome, unspecified K21.9 Gastro-esophageal reflux disease without esophagitis K58.9 Irritable bowel syndrome without diarrhea Office Visit 04/07/2016 9:45a Jose Guadalupe Conrad MD K74.3 Primary biliary cirrhosis K21.9 Gastro-esophageal reflux disease without esophagitis K58.9 Irritable bowel syndrome without diarrhea Office Visit 02/09/2016 3:00p Jose Guadalupe Conrad MD K74.3 Primary biliary cirrhosis K21.9 Gastro-esophageal reflux disease without esophagitis K58.9 Irritable bowel syndrome without diarrhea Office Visit 01/08/2016 10:30a Jose Guadalupe Conrad MD K74.3 Primary biliary cirrhosis K58.0 Irritable bowel syndrome with diarrhea K21.9 Gastro-esophageal reflux disease without esophagitis Z12.11 Encounter for screening for malignant neoplasm of colon Office Visit 11/25/2015 11:30a Feli Elizabeth K21.9 Gastro-esophageal reflux Sheeba, PA-C disease without esophagitis K74.3 Primary biliary cirrhosis C44.520 Squamous cell carcinoma of anal skin K58.0 Irritable bowel syndrome with diarrhea K55.1 Chronic vascular disorders of intestine Office Visit 10/08/2015 1:00p Jose Guadalupe Conrad MD R19.7 Diarrhea, unspecified K74.3 Primary biliary cirrhosis K58.9 Irritable bowel syndrome without diarrhea K21.9 Gastro-esophageal reflux disease without esophagitis C44.520 Squamous cell carcinoma of anal skin Office Visit 08/07/2008 11:20a Jose Guadalupe Conrad MD 571.6 Cirrhosis Biliary Plan of Treatment Future Appointment(s):08/15/2019 10:00 am - Lamar Dickey PA at [facility]/ 09/2019 10:00 am - Jesus Sutherland MD at GI02/12/2019 - Lamar Dickey PAJ44.9 Chronic obstructive pulmonary disease, unspecifiedComments:Continue to use the acapella frequently. Please increase the Spiriva to 2 puffs once daily. Stop Combivent, if feeling short of breath, coughing or wheezing please use your nebulizer with levabuterol or Ventolin inhaler. Continue Symbicort 160- 4.5mcg 2 puffs twice daily.You should use oxygen 2L at night and with any activity to keep oxygen 88%.Follow up:6 uvzhzyT21.02 HypoxemiaComments:Use oxygen every night and with activity. You do not need it when you are sitting still.R60.9 Edema, unspecifiedNew Therapy:Comments:I want you to wear compression stockings every day, and we will start physical therapy for lymphedema, I am sending in a referral.F17.210 Nicotine dependence, cigarettes, [id number] Tobacco abuse counseling
[2019-02-23 11:58] VITALS: BP 106/62
--- NOTE | 2019-02-23 13:00 | UC ---
Respiratory Complaint HPI - HPI Summary HPI Summary: Per director mission PRODUCTIVE COUGH W/ GREEN PHELGM FOR LAST COUPLE DAYS. DENIES FEVER/CHILLS. NO MEDS TAKEN OTC. " -h/o PBC w/ h/o esophageal varicies, O2 dependent COPD, metformin w/ cough x 2 days. has comprmised liver function d/t PBC and takes actigall. she is not wearing the O2 currently. -takes symbicort, spiriva & has alb neb. last used 5 hrs ago. gives some temp relief. not SOB. usually uses doxy for these exacerbations. has needd prednisone but they avoid them unless necessary. - History of Current Complaint Chief Complaint: UCRespiratory Stated Complaint: CHEST CONGESTION Time Seen by Provider: 02/23/19 12:49 Hx Last Menstrual Period: n/a Pain Intensity: 0 - Allergies/Home Medications Allergies/Adverse Reactions: Allergies Allergy/AdvReac Type Severity Reaction Status Date / Time amoxicillin Allergy Diarrhea Verified 02/23/19 11:51 azithromycin [From Zithromax] Allergy Swelling Verified 02/23/19 11:51 Of Face,Lips,& Throat clarithromycin [From Biaxin] Allergy Swelling Verified 02/23/19 11:51 Of Face,Lips,& Throat PMH/Surg Hx/FS Hx/Imm Hx Previously Healthy: Yes - complex medical hx as listed above Endocrine History: Diabetes Respiratory History: COPD GI/ History: Other - PBC - Surgical History Surgical History: Yes Surgery Procedure, Year, and Place: TUBAL LIGATION--1979. ESOPHEGIEAL VARICES/ banding - Family History Known Family History: Positive: Hypertension, Diabetes, Other - COPD daughter of cirrhosis and renal failure. - Social History Alcohol Use: Occasionally Substance Use Type: None Smoking Status (MU): Former Smoker Type: Cigarettes Amount Used/How Often: 1/2 PPD Length of Time of Smoking/Using Tobacco: 20 YRS Have You Smoked in the Last Year: Yes Household Exposure Type: Cigarettes - Immunization History Most Recent Influenza Vaccination: none Most Recent Tetanus Shot: UTD Review of Systems All Other Systems Reviewed And Are Negative: Yes Constitutional: Positive: Fatigue Skin: Positive: Negative. Negative: Rash Eyes: Positive: Negative ENT: Negative: Ear Ache, Sinus Pain/Tenderness Respiratory: Positive: Cough. Negative: Shortness Of Breath Cardiovascular: Positive: Negative Gastrointestinal: Positive: Negative Genitourinary: Positive: Negative Motor: Positive: Negative Neurovascular: Positive: Negative Musculoskeletal: Positive: Negative Neurological: Positive: Negative Psychological: Positive: Negative Is Patient Immunocompromised?: No Physical Exam Triage Information Reviewed: Yes Appearance: Ill-Appearing - chronic, Thin Vital Signs: Initial Vital Signs Temp 98.4 F 02/23/19 11:54 Pulse 93 02/23/19 11:54 Resp 18 02/23/19 11:54 BP 106/62 02/23/19 11:54 Pulse Ox 96 02/23/19 11:54 Vital Signs Reviewed: Yes Eye Exam: Normal Eyes: Positive: Other: - no icterus ENT: Positive: Hearing grossly normal, TMs normal, Uvula midline. Negative: TM bulging, TM dull, TM red, Tonsillar swelling, Tonsillar exudate, Sinus tenderness Neck exam: Normal Neck: Positive: Supple, Nontender, No Lymphadenopathy Respiratory: Positive: No respiratory distress, No accessory muscle use, Decreased breath sounds. Negative: Crackles, Rhonchi, Stridor, Wheezing - exp b /l throughout. Cardiovascular Exam: Normal Cardiovascular: Positive: RRR Abdomen Description: Positive: Nontender, Soft Musculoskeletal Exam: Normal Neurological Exam: Normal Psychological Exam: Normal Skin Exam: Normal Respiratory Course/Dx - Course Course Of Treatment: doxy x 10 d for copd exac. avoid pred if possible. use neb q4-6 hrs. may need pred if sx worsen or persist. will FU w/ PCP in 2 days. she understood me well and is agreeable w/ plan - Differential Dx/Diagnosis Differential Diagnosis/HQI/PQRI: Bronchitis, Lower Resp Infection Provider Diagnosis: COPD exacerbation Discharge - Sign-Out/Discharge Documenting (check all that apply): Patient Departure All imaging exams completed and their final reports reviewed: No Studies - Discharge Plan Condition: Stable Disposition: HOME Prescriptions: Doxycycline Hyclate 100 mg PO BID #20 tablet Patient Education Materials: COPD (Chronic Obstructive Pulmonary Disease) (ED) Referrals: Sandra Birch MD [Primary Care Provider] - 2 Days Additional Instructions: -Make sure to take a probiotic daily while on antibiotics to help prevent a potential complication of antibiotic use called c diff. Some well known brands that can be found OTC are florastor, align and [employer]. Make sure to complete the entire prescription unless advised otherwise by your health care provider. -You should use the oxygen continuously and the albuterol neb every 4-6 hrs. Continue the spiriva and symbicort. I am hoping that we can avoid prednisone, but should be considered if your symptoms increase or persist. - Billing Disposition and Condition Condition: STABLE Disposition: Home
== END 2019-02-23 13:12 | disposition home or self-care (01) ==
LOC: UCCORT 10:55
DX: J44.1 Chronic obstructive pulmonary disease with (acute) exacerbation (principal); E11.9 Type 2 diabetes mellitus without complications; F17.210 Nicotine dependence, cigarettes, uncomplicated; Z88.1 Allergy status to other antibiotic agents; Z88.0 Allergy status to penicillin
CPT/HCPCS: 99212; G0463